=== PATIENT | male | born 1955 | race Caucasian/White ===

== ENCOUNTER → 2017-01-17 | Outpatient (CLI) | payer BC ==
[2017-01-17 07:11] LABS: Basophils # (A) 0.1 k/uL (0-0.2); Basophils % (A) 1 %; CH 30.4; CHCM 34.6; Eosinophils # (A) 0.3 k/uL (0-0.7); Eosinophils % (A) 6 %; HCT 45.9 % (39.0-53.0); HDW 2.79; HGB 15.8 gm/dL (13.0-17.5); Luc # (Auto) 0.11; Luc % (Auto) 2; Lymphocytes # (A) 0.7 k/uL (1.0-4.8); Lymphocytes % (A) 12 %; MCH 30.4 pg (25.0-35.0); MCHC 34.5 g/dL (31.0-37.0); MCV 88.2 fL (80.0-100.0); Mean Platelet Volume 7.2; Monocytes # (A) 0.4 k/uL (0-1.0); Monocytes % (A) 8 %; Neutrophils # (A) 4.1 k/uL (1.3-7.7); Neutrophils % (A) 72 %; RDW 14.7 % (11.5-15.5); WBC 5.6 k/uL (3.8-10.6); WBC (Perox) 5.77
[2017-01-17 08:04] LABS: ALT 55 U/L (21-72); AST 29 U/L (17-59); Alkaline Phosphatase 59 U/L (38-126); Anion Gap 9 mmol/L; Blood Urea Nitrogen 16 mg/dL (9-20); Calcium 9.6 mg/dL (8.4-10.2); Carbon Dioxide 28 mmol/L (22-30); Chloride 106 mmol/L (98-107); Cholesterol 133 mg/dL (<200); Glucose 98 mg/dL (74-99); HDL Cholesterol 25 mg/dL (40-60); Non-African American GFR(MDRD) >60 (>60 ml/min/1.73 sqM); Potassium 4.2 mmol/L (3.5-5.1); Sodium 143 mmol/L (137-145); Total Bilirubin 0.4 mg/dL (0.2-1.3); Total Protein 6.8 g/dL (6.3-8.2)
== END | disposition home or self-care (01) ==
LOC: LABWHC1 06:34
PROVIDERS: ATTEND Internal Medicine
DX: E78.00 Pure hypercholesterolemia, unspecified (principal); K58.9 Irritable bowel syndrome, unspecified; Z79.899 Other long term (current) drug therapy
CPT/HCPCS: 84439; 84481; 80061; 80053; 84443; 85025; 83036; 36415; G0103

== ENCOUNTER → 2018-10-22 | Outpatient (CLI) | payer BC ==
[2018-10-22 07:20] LABS: Basophils % (A) 1 %; Eosinophils # (A) 0.2 k/uL (0-0.7); Eosinophils % (A) 4 %; HCT 40.7 % (39.0-53.0); HGB 14.1 gm/dL (13.0-17.5); Lymphocytes # (A) 0.6 k/uL (1.0-4.8); Lymphocytes % (A) 13 %; MCH 29.6 pg (25.0-35.0); MCHC 34.6 g/dL (31.0-37.0); MCV 85.6 fL (80.0-100.0); Mean Platelet Volume 6.9; Monocytes # (A) 0.3 k/uL (0-1.0); Monocytes % (A) 7 %; Neutrophils # (A) 3.4 k/uL (1.3-7.7); Neutrophils % (A) 72 %; Platelet Count 148 k/uL (150-450); RBC 4.75 m/uL (4.30-5.90); RDW 13.8 % (11.5-15.5); WBC 4.7 k/uL (3.8-10.6)
[2018-10-22 13:29] LABS: African American GFR (CKD) 62.4 (60.0-200.0); Albumin 4.3 g/dL (3.80-4.90); Albumin/Globulin Ratio 1.72 (1.60-3.17); Anion Gap 8.4 mmol/L (4.00-12.00); BUN/Creat Ratio 12.14 Ratio (12.00-20.00); Carbon Dioxide 27.6 mmol/L (21.6-31.8); Globulin 2.5 g/dL (1.6-3.3); Non-African American GFR(CKD) 53.8 (60.0-200.0); Potassium 4.2 mmol/L (3.5-5.5); Total Bilirubin 0.6 mg/dL (0.2-1.2); Total Protein 6.8 g/dL (6.2-8.2)
[2018-10-22 13:39] LABS: T4, Free (Free Thyroxine) 1.3 ng/dL (0.80-1.80)
[2018-10-22 17:35] LABS: Hemoglobin A1C 4.8 % (4.0-6.0)
== END | disposition home or self-care (01) ==
LOC: LABWHC1 06:40
PROVIDERS: ATTEND Internal Medicine
DX: E78.00 Pure hypercholesterolemia, unspecified (principal); K58.9 Irritable bowel syndrome, unspecified; M54.5 Low back pain; Z80.0 Family history of malignant neoplasm of digestive organs
CPT/HCPCS: 84439; 84481; 80053; 84443; 85025; 83036; 36415; G0103

== ENCOUNTER 2020-10-27 16:35 | Observation (INO) | payer BC ==
[2020-10-27 17:38] LABS: Basophils % (A) 0 %; Eosinophils # (A) 0.1 k/uL (0-0.7); Eosinophils % (A) 1 %; HCT 44.3 % (39.0-53.0); HGB 15.8 gm/dL (13.0-17.5); Lymphocytes # (A) 0.7 k/uL (1.0-4.8); Lymphocytes % (A) 7 %; MCH 32.3 pg (25.0-35.0); MCHC 35.7 g/dL (31.0-37.0); MCV 90.5 fL (80.0-100.0); Monocytes # (A) 0.3 k/uL (0-1.0); Monocytes % (A) 3 %; Neutrophils # (A) 8.7 k/uL (1.3-7.7); Neutrophils % (A) 87 %; Platelet Count 239 k/uL (150-450); RBC 4.89 m/uL (4.30-5.90); RDW 13.3 % (11.5-15.5)
[2020-10-27 17:52] LABS: ALT 28 U/L (4-49); AST 25 U/L (17-59); African American GFR (CKD) >90 (>60 ml/min/1.73 sqM); Albumin 3.9 g/dL (3.5-5.0); Alkaline Phosphatase 82 U/L (38-126); Anion Gap 10 mmol/L; Blood Urea Nitrogen 12 mg/dL (9-20); Calcium 9.6 mg/dL (8.4-10.2); Carbon Dioxide 23 mmol/L (22-30); Chloride 103 mmol/L (98-107); Glucose 114 mg/dL (74-99); Non-African American GFR(CKD) >90 (>60 ml/min/1.73 sqM); Potassium 3.9 mmol/L (3.5-5.1); Sodium 136 mmol/L (137-145); Total Bilirubin 0.4 mg/dL (0.2-1.3); Total Protein 6.7 g/dL (6.3-8.2)
[2020-10-27] MEDS ORDERED: AMPICILLIN-SULBACTAM 3 GM in SODIUM CHLORIDE 0.9% 100 ML IVPB STA (18:22)
[2020-10-27] MEDS ORDERED: VANCOMYCIN IV PER PHARMACY 1 EACH MISC MISCELLANE PRN (18:23)
[2020-10-27] MEDS ORDERED: NALOXONE 0.4 MG/ML 1 ML VIAL IV PRN (18:29)
--- NOTE | 2020-10-27 18:29 | ED ---
General Adult HPI - General Chief complaint: Skin/Abscess/Foreign Body Stated complaint: back abscess Time Seen by Provider: 10/27/20 16:49 Source: patient Mode of arrival: ambulatory Limitations: no limitations - History of Present Illness Initial comments: 65-year-old male who presents to the emergency department from Dr. Ro office. Dr. whalen he does call and reports that the patient will be coming in for a large abscess on his back. Patient reports that the abscess has been present for some time however has been increasing in size rapidly over the past week. He did see Dr. whalen yesterday and his abscess was incised and drained. He was placed on Keflex. He states he has taken 3 doses of the antibiotic. He presented again today for reevaluation and dr whalen was concerned about the size of the abscess. The incised it again today. States he is currently waiting for culture results. He was concerned that due to the spreading cellulitis that the patient required IV antibiotics. Patient denies any history of MRSA and has had multiple other areas of infection body but states he has not been on any antibiotics recently. Denies history of drug use. No contacts with similar symptoms. No fevers or chills. Denies nausea or vomiting. No other alleviating, precipitating or modifying factors - Related Data Previous Rx's Medication Instructions Recorded HYDROcodone/APAP 5-325MG [[place] 1 tab PO Q6HR PRN #15 tab 02/03/16 5-325] Cephalexin [Keflex] 500 mg PO QID 10 Days #40 cap 10/31/20 Ciprofloxacin HCl [Cipro] 500 mg PO BID 10 Days #20 tab 10/31/20 Allergies Allergy/AdvReac Type Severity Reaction Status Date / Time shellfish derived [Shellfish] Allergy Swelling Verified 10/27/20 18:34 Review of Systems ROS Statement: Those systems with pertinent positive or pertinent negative responses have been documented in the HPI. ROS Other: All systems not noted in ROS Statement are negative. Past Medical History Past Medical History: No Reported History Additional Past Medical History / Comment(s): seasonal allergies History of Any Multi-Drug Resistant Organisms: None Reported Past Surgical History: No Surgical Hx Reported Past Psychological History: No Psychological Hx Reported Smoking Status: Never smoker Past Alcohol Use History: None Reported Past Drug Use History: None Reported General Exam Limitations: no limitations Respiratory exam: Present: normal lung sounds bilaterally. Absent: respiratory distress, wheezes, rales, rhonchi, stridor Cardiovascular Exam: Present: regular rate, normal rhythm, normal heart sounds. Absent: systolic murmur, diastolic murmur, rubs, gallop, clicks GI/Abdominal exam: Present: soft, normal bowel sounds. Absent: distended, tenderness, guarding, rebound, rigid Skin exam: Present: other (abscess left back measuring 8 x 6 cm. 4 cm ring of surrounding redness and swelling consistent with cellulitis. No active drainage at this time. ) Course Vital Signs 10/27/20 10/27/20 16:44 20:00 Temperature 98.3 F 97.7 F Pulse Rate 80 Pulse Rate [ 67 Pulse Oximetery ] Respiratory 18 20 Rate Blood Pressure 129/84 Blood Pressure 138/75 [Left Arm] O2 Sat by Pulse 97 97 Oximetry Medical Decision Making - Medical Decision Making Upon arrival patient was placed into room 27. IV is established laboratory studies were conducted. I did review the patient's culture results which show mssa. Due to the large size of the abscess I did give the patient a dose of Unasyn and Vanco. Recommended admission with surgical consult for Dr. Phillips. Called and spoke with Dr. gasca who agreed to admit the patient. He was taken to the floor in stable condition - Lab Data Result diagrams: 10/27/20 17:24 10/30/20 05:46 Lab Results 10/27/20 10/27/20 10/27/20 Range/Units 17:24 17:24 17:24 WBC 10.0 (3.8-10.6) k/uL RBC 4.89 (4.30-5.90) m/uL Hgb 15.8 (13.0-17.5) gm/dL Hct 44.3 (39.0-53.0) % MCV 90.5 (80.0-100.0) fL MCH 32.3 (25.0-35.0) pg MCHC 35.7 (31.0-37.0) g/dL RDW 13.3 (11.5-15.5) % Plt Count 239 (150-450) k/uL MPV 7.0 Neutrophils % 87 % Lymphocytes % 7 % Monocytes % 3 % Eosinophils % 1 % Basophils % 0 % Neutrophils # 8.7 H (1.3-7.7) k/uL Lymphocytes # 0.7 L (1.0-4.8) k/uL Monocytes # 0.3 (0-1.0) k/uL Eosinophils # 0.1 (0-0.7) k/uL Basophils # 0.0 (0-0.2) k/uL Sodium 136 L (137-145) mmol/L Potassium 3.9 (3.5-5.1) mmol/L Chloride 103 (98-107) mmol/L Carbon Dioxide 23 (22-30) mmol/L Anion Gap 10 mmol/L BUN 12 (9-20) mg/dL Creatinine 0.73 (0.66-1.25) mg/dL Est GFR (CKD-EPI)AfAm >90 (>60 ml/min/1.73 sqM) Est GFR (CKD-EPI)NonAf >90 (>60 ml/min/1.73 sqM) Glucose 114 H (74-99) mg/dL Plasma Lactic Acid Michael 0.7 (0.7-2.0) mmol/L Calcium 9.6 (8.4-10.2) mg/dL Total Bilirubin 0.4 (0.2-1.3) mg/dL AST 25 (17-59) U/L ALT 28 (4-49) U/L Alkaline Phosphatase 82 (38-126) U/L Total Protein 6.7 (6.3-8.2) g/dL Albumin 3.9 (3.5-5.0) g/dL Disposition Clinical Impression: Abscess, Cellulitis Disposition: ADMITTED IP TO THIS [facility] Condition: Stable Is patient prescribed a controlled substance at d/c from ED?: No Decision to Admit Reason: Admit from EC Decision Date: 10/27/20 Decision Time: 18:28
[2020-10-27] MEDS ORDERED: VANCOMYCIN 1,500 MG in SODIUM CHLORIDE 0.9% 250 ML IVPB ONE (18:30)
[2020-10-28] MEDS: VANCOMYCIN 1,500 MG in SODIUM CHLORIDE 0.9% 250 ML IVPB SCH ×3 (06:05→19:53)
[2020-10-28 06:48] LABS: African American GFR (CKD) >90 (>60 ml/min/1.73 sqM); Anion Gap 9 mmol/L; Blood Urea Nitrogen 12 mg/dL (9-20); Calcium 9.5 mg/dL (8.4-10.2); Carbon Dioxide 25 mmol/L (22-30); Chloride 104 mmol/L (98-107); Glucose 118 mg/dL (74-99); Non-African American GFR(CKD) >90 (>60 ml/min/1.73 sqM); Sodium 138 mmol/L (137-145)
[2020-10-28] MEDS ORDERED: ONDANSETRON 4 MG/2 ML VIAL IVP PRN (08:32)
[2020-10-28] MEDS: HEPARIN SODIUM,PORCINE/PF 5,000 UNIT/0.5 ML SYRINGE SQ SCH ×2 (08:41→19:53)
[2020-10-28] MEDS: SODIUM CHLORIDE 0.9% 1,000 ML IV SCH ×2 (08:41→19:54)
[2020-10-28] MEDS: FAMOTIDINE 20 MG/2 ML VIAL IV SCH ×2 (08:46→19:54)
--- NOTE | 2020-10-28 10:32 | P.HPIM ---
History of Present Illness This is a pleasant 65 years old male with no significant past medical history. Presents because of back abscess Patient follows up with his clay roaster Dr. Tsai for his laparoscopic cholecystectomy rash, he has few papules in his lower extremities, however he started developing back abscess and for the last 10 days was getting bigger is status post I&D 3 times by his clay roaster and eventually he asked him to come to emergency room Patient is afebrile and vitals are stable. Labs reviewed showed an unremarkable CBC, BMP and liver enzymes except for mildly low sodium at 136, and mildly elevated glucose at 214 The emergency room patient was started on vancomycin and got 1 dose of Unasyn Surgery team were consulted for abscess evaluation Review of Systems CONSTITUTIONAL: No fever, no malaise, no fatigue. HEENT: No recent visual problems or hearing problems. Denied any sore throat. CARDIOVASCULAR: No orthopnea, PND, no palpitations, no syncope. PULMONARY: No shortness of breath, no cough, no hemoptysis. GASTROINTESTINAL: No diarrhea, no nausea, no vomiting, no abdominal pain. Normoactive bowel sounds. NEUROLOGICAL: No headaches, no weakness, no numbness. HEMATOLOGICAL: Denies any bleeding or petechiae. GENITOURINARY: Denies any burning micturition, frequency, or urgency. MUSCULOSKELETAL/RHEUMATOLOGICAL: Denies any joint pain, swelling, or any muscle pain. ENDOCRINE: Denies any polyuria or polydipsia. Past Medical History Past Medical History: No Reported History Additional Past Medical History / Comment(s): seasonal allergies History of Any Multi-Drug Resistant Organisms: None Reported Past Surgical History: No Surgical Hx Reported Past Anesthesia/Blood Transfusion Reactions: No Reported Reaction Past Psychological History: No Psychological Hx Reported Smoking Status: Never smoker Past Alcohol Use History: None Reported Past Drug Use History: None Reported Medications and Allergies Home Medications Medication Instructions Recorded Confirmed Type HYDROcodone/APAP 5-325MG [[place] 1 tab PO Q6HR PRN #15 tab 02/03/16 10/27/20 Rx 5-325] Cephalexin [Keflex] 500 mg PO TID 10/27/20 10/27/20 History Allergies Allergy/AdvReac Type Severity Reaction Status Date / Time shellfish derived [Shellfish] Allergy Swelling Verified 10/27/20 18:34 Physical Exam Vitals: Vital Signs Temp Pulse Pulse Resp BP BP Pulse Ox 10/28/20 02:53 71 18 10/28/20 02:00 98.3 F 71 18 102/63 93 L 10/27/20 21:00 71 18 10/27/20 20:00 97.7 F 67 20 138/75 97 10/27/20 16:44 98.3 F 80 18 129/84 97 Intake and Output 10/27/20 10/27/20 10/28/20 14:59 22:59 06:59 Other: Voiding Method Toilet Toilet # Voids 1 3 Weight 97.522 kg GENERAL: The patient is alert and oriented x3, not in any acute distress. Well developed, well nourished. HEENT: Pupils are round and equally reacting to light. EOMI. No scleral icterus. No conjunctival pallor. Normocephalic, atraumatic. No pharyngeal erythema. No thyromegaly. CARDIOVASCULAR: S1 and S2 present. No murmurs, rubs, or gallops. PULMONARY: Chest is clear to auscultation, no wheezing or crackles. ABDOMEN: Soft, nontender, nondistended, normoactive bowel sounds. No palpable organomegaly. -MUSCULOSKELETAL: No joint swelling or deformity. Back abscess with surrounding cellulitis, 4-5 inches in diameter with some purulent discharge in the upper part EXTREMITIES: No cyanosis, clubbing, or pedal edema. NEUROLOGICAL: Gross neurological examination did not reveal any focal deficits. SKIN: No rashes. No petechiae Results CBC & Chem 7: 10/27/20 17:24 10/28/20 06:25 Labs: Abnormal Lab Results - Last 24 Hours (Table) 10/27/20 10/27/20 Range/Units 17:24 17:24 Neutrophils # 8.7 H (1.3-7.7) k/uL Lymphocytes # 0.7 L (1.0-4.8) k/uL Sodium 136 L (137-145) mmol/L Glucose 114 H (74-99) mg/dL Thrombosis Risk Factor Assmnt - Choose All That Apply Each Factor Represents 1 point: Obesity (BMI >25) Each Risk Factor Represents 2 Points: Age 61-74 years Other congenital or acquired thrombophilia - If yes, enter type in comment: No Thrombosis Risk Factor Assessment Total Risk Factor Score: 3 Thrombosis Risk Factor Assessment Level: Moderate Risk Assessment and Plan Assessment: Back abscess with Surrounding cellulitis Recent COVID-19 19 infection Plan: This is a pleasant 65 years old male who presents with a back abscess, he was started on vancomycin We'll consult infectious disease for further evaluation and antibiotic management Surgery consult for possible I and D Start IV hydration Labs and medication were reviewed.. Continue same treatment. Continue with symptomatic treatment. Resume home medication. Monitor lytes and vitals. DVT and GI prophylaxis. Further recommendations depends on the clinical course of the patient DVT prophylaxis: Subcutaneous heparin GI Prophylaxis: Pepcid PT/OT: Pending Prognosis is guarded
--- NOTE | 2020-10-28 12:54 | P.GSCN ---
History of Present Illness Consult date: 10/28/20 History of present illness: CHIEF COMPLAINT: Back abscess HISTORY OF PRESENT ILLNESS: This is a 65-year-old male with no significant past medical history. Patient presents to emergency room with complaints of upper back abscess. Patient reports that it started out as a pimple and he had picked at it and it continued to increase in size. He is required to [address] I[address] Maria's office. The last one was on . He also had been taking Keflex and received 3 doses. Unfortunately the abscess continued to worsen and he was told to come to the hospital for IV antibiotics. Surgical consult was placed for further evaluation of the back abscess. He denies any fevers but he has been having some nausea and vomiting. PAST MEDICAL HISTORY: See list. PAST SURGICAL HISTORY: See list. MEDICATIONS: See list. ALLERGIES: See list. SOCIAL HISTORY: No illicit drug use. REVIEW OF SYSTEMS: CONSTITUTIONAL: Denies fever or chills. HEENT: Denies blurred vision, vision changes, or eye pain. Denies hemoptysis CARDIOVASCULAR: Denies chest pain or pressure. RESPIRATORY: No shortness of breath. GASTROINTESTINAL: See HPI for pertinent findings HEMATOLOGIC: Denies bleeding disorders. GENITOURINARY: Denies any blood in urine or increased urinary frequency. SKIN: Denies pruitis. Denies rash. PHYSICAL EXAM: VITAL SIGNS: Reviewed GENERAL: Well-developed in no acute distress. HEENT: No sclera icterus. Extraocular movements grossly intact. Moist buccal mucosa. Head is atraumatic, normocephalic. No nasal drainage. ABDOMEN: Soft. Nondistended. Nontender. NEUROLOGIC: Alert and oriented. Cranial nerves II through XII grossly intact. Skin: 5 cm circular abscess with sloughing of skin. Mild erythema on the edges. Area of induration around the edges of the abscess. Below that is about a 2 cm abscess that has not drained. Erythema induration noted and mild fluctuance. LABORATORY DATA: WBC 10 hemoglobin 15.8 platelets 239 sodium 138 potassium 4.0 creatinine 0.76 LFTs normal Culture results on October 24 had grown MSSA IMAGING: ASSESSMENT: 1. Back abscesses status post 3 I&D's outpatient by mushroom press operator PLAN: -No surgical intervention planned -Continue local wound care -Continue antibiotics per ID -Agree with ID consult -Apply warm compress to the smaller abscess has not started to drain yet Thank you for this consultation Physician Beam Racker note has been reviewed by physician. Signing provider agrees with the documented findings, assessment, and plan of care. Past Medical History Past Medical History: No Reported History Additional Past Medical History / Comment(s): seasonal allergies History of Any Multi-Drug Resistant Organisms: None Reported Past Surgical History: No Surgical Hx Reported Past Anesthesia/Blood Transfusion Reactions: No Reported Reaction Past Psychological History: No Psychological Hx Reported Smoking Status: Never smoker Past Alcohol Use History: None Reported Past Drug Use History: None Reported Medications and Allergies Home Medications Medication Instructions Recorded Confirmed Type HYDROcodone/APAP 5-325MG [[place] 1 tab PO Q6HR PRN #15 tab 02/03/16 10/27/20 Rx 5-325] Cephalexin [Keflex] 500 mg PO TID 10/27/20 10/27/20 History Allergies Allergy/AdvReac Type Severity Reaction Status Date / Time shellfish derived [Shellfish] Allergy Swelling Verified 10/27/20 18:34 Surgical - Exam Vital Signs Temp Pulse Resp BP Pulse Ox 98.3 F 80 18 129/84 97 10/27/20 16:44 10/27/20 16:44 10/27/20 16:44 10/27/20 16:44 10/27/20 16:44 Results - Labs 10/27/20 17:24 10/28/20 06:25 Abnormal Lab Results - Last 24 Hours (Table) 10/27/20 10/27/20 10/28/20 Range/Units 17:24 17:24 06:25 Neutrophils # 8.7 H (1.3-7.7) k/uL Lymphocytes # 0.7 L (1.0-4.8) k/uL Sodium 136 L (137-145) mmol/L Glucose 114 H 118 H (74-99) mg/dL Diabetes panel 10/27/20 10/28/20 Range/Units 17:24 06:25 Sodium 136 L 138 (137-145) mmol/L Potassium 3.9 4.0 (3.5-5.1) mmol/L Chloride 103 104 (98-107) mmol/L Carbon Dioxide 23 25 (22-30) mmol/L BUN 12 12 (9-20) mg/dL Creatinine 0.73 0.76 (0.66-1.25) mg/dL Glucose 114 H 118 H (74-99) mg/dL Calcium 9.6 9.5 (8.4-10.2) mg/dL AST 25 (17-59) U/L ALT 28 (4-49) U/L Alkaline Phosphatase 82 (38-126) U/L Total Protein 6.7 (6.3-8.2) g/dL Albumin 3.9 (3.5-5.0) g/dL Calcium panel 10/27/20 10/28/20 Range/Units 17:24 06:25 Calcium 9.6 9.5 (8.4-10.2) mg/dL Albumin 3.9 (3.5-5.0) g/dL Pituitary panel 10/27/20 10/28/20 Range/Units 17:24 06:25 Sodium 136 L 138 (137-145) mmol/L Potassium 3.9 4.0 (3.5-5.1) mmol/L Chloride 103 104 (98-107) mmol/L Carbon Dioxide 23 25 (22-30) mmol/L BUN 12 12 (9-20) mg/dL Creatinine 0.73 0.76 (0.66-1.25) mg/dL Glucose 114 H 118 H (74-99) mg/dL Calcium 9.6 9.5 (8.4-10.2) mg/dL Adrenal panel 10/27/20 10/28/20 Range/Units 17:24 06:25 Sodium 136 L 138 (137-145) mmol/L Potassium 3.9 4.0 (3.5-5.1) mmol/L Chloride 103 104 (98-107) mmol/L Carbon Dioxide 23 25 (22-30) mmol/L BUN 12 12 (9-20) mg/dL Creatinine 0.73 0.76 (0.66-1.25) mg/dL Glucose 114 H 118 H (74-99) mg/dL Calcium 9.6 9.5 (8.4-10.2) mg/dL Total Bilirubin 0.4 (0.2-1.3) mg/dL AST 25 (17-59) U/L ALT 28 (4-49) U/L Alkaline Phosphatase 82 (38-126) U/L Total Protein 6.7 (6.3-8.2) g/dL Albumin 3.9 (3.5-5.0) g/dL
--- NOTE | 2020-10-28 23:50 | P.CONS ---
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 for evaluation of large abscess on his back patient symptom he is having problem with a cyst through the mid back area for couple of weeks with the patient has been evaluated in the outpatient setting by his national park tour guide patient did have a drainage of this abscess on Saturday with a repeat drainage the day before presentation to the hospital and the patient will be treated with oral Keflex however the patient did have worsening of the swelling redness and drainage for the patient was sent to the ER for admission and IV antibiotic therapy, the patient denies having any fever or any chills and the patient did not have any fever on presentation to the hospital did have a normal white count but a left shift patient was complaining of pain to the mid back area more of a dull aching with intensity about 4-5 over 10 had no radiation he did have minimal drainage patient has been started on vancomycin general surgery has seen the patient with possible debridement in the morning infectious disease was consulted for further management of antibiotic therapy Review of Systems CONSTITUTIONAL: Positive for weakness. Fever EYES: No complaint. ENT:No complaint. RESPIRATORY: No complaint. CARDIOVASCULAR: No complaint. GENITOURINARY: No complaint. GASTROINTESTINAL: No complaint. MUSCULOSKELETAL: No complaint. INTEGUMENTARY: As per history of present illness. PSYCHOLOGICAL: No complaint. ENDOCRINE: No complaint. NEUROLOGIC: No complaint. Past Medical History Past Medical History: No Reported History Additional Past Medical History / Comment(s): seasonal allergies History of Any Multi-Drug Resistant Organisms: None Reported Past Surgical History: No Surgical Hx Reported Past Anesthesia/Blood Transfusion Reactions: No Reported Reaction Past Psychological History: No Psychological Hx Reported Smoking Status: Never smoker Past Alcohol Use History: None Reported Past Drug Use History: None Reported Medications and Allergies Home Medications Medication Instructions Recorded Confirmed Type HYDROcodone/APAP 5-325MG [[place] 1 tab PO Q6HR PRN #15 tab 02/03/16 10/27/20 Rx 5-325] Cephalexin [Keflex] 500 mg PO TID 10/27/20 10/27/20 History Allergies Allergy/AdvReac Type Severity Reaction Status Date / Time shellfish derived [Shellfish] Allergy Swelling Verified 10/27/20 18:34 Physical Exam Vitals: Vital Signs Temp Pulse Pulse Resp BP BP Pulse Ox 10/28/20 15:00 98.1 F 77 17 140/71 96 10/28/20 07:00 97.2 F L 60 18 113/67 94 L 10/28/20 02:53 71 18 10/28/20 02:00 98.3 F 71 18 102/63 93 L 10/27/20 21:00 71 18 10/27/20 20:00 97.7 F 67 20 138/75 97 10/27/20 16:44 98.3 F 80 18 129/84 97 Intake and Output 10/28/20 10/28/20 10/28/20 06:59 14:59 22:59 Intake Total 477 Balance 477 Intake: Oral 477 Other: Voiding Method Toilet # Voids 3 3 GENERAL DESCRIPTION: Middle-aged male lying in bed, no distress. No tachypnea or accessory muscle of respiration use. HEENT: Shows Pallor , no scleral icterus. Oral mucous membrane is dry. No pharyngeal erythema or thrush NECK: Trachea central, no thyromegaly. LUNGS: Unlabored breathing. Clear to auscultation anteriorly. No wheeze or crackle. HEART: S1, S2, regular rate and rhythm. No loud murmur ABDOMEN: Soft, no tenderness , guarding or rigidity, no organomegaly EXTREMITIES: No edema of feet. SKIN: No rash, no masses palpable. Mid back and did have an area ulceration or any redness he will drainage NEUROLOGICAL: The patient is awake, alert, oriented x3, mood and affect normal. Results CBC & Chem 7: 10/27/20 17:24 10/28/20 06:25 Labs: Abnormal Lab Results - Last 24 Hours (Table) 10/27/20 10/27/20 10/28/20 Range/Units 17:24 17:24 06:25 Neutrophils # 8.7 H (1.3-7.7) k/uL Lymphocytes # 0.7 L (1.0-4.8) k/uL Sodium 136 L (137-145) mmol/L Glucose 114 H 118 H (74-99) mg/dL Assessment and Plan Assessment: 1-patient presented to hospital with mid back abscess that has been going on for few weeks now started with a cyst that has been drained in the outpatient setting and has been treated with the oral antibiotic without resolution likely representing failure of the oral antibiotics and will be deferred for the gram- positive skin jennifer to be the likely pathogen especially community associated MRSA (1) Abscess Current Visit: Yes Status: Acute Code(s): L02.91 - CUTANEOUS ABSCESS, UNSPECIFIED SNOMED Code(s): 163984475 Plan: 1-Marked the area of induration/redness 2-await surgical drainage and deep cultures 3-vancomycin pharmacy to dose her with a target trough of 15 while watching her kidney function and Vanco trough closely. We will follow on clinical condition and cultures to further adjust medication if needed Thank you for this consultation we will follow the patient along with you Time with Patient: Greater than 30
[2020-10-29] MEDS: VANCOMYCIN 1,500 MG in SODIUM CHLORIDE 0.9% 250 ML IVPB SCH ×3 (05:41→23:23)
[2020-10-29] MEDS: FAMOTIDINE 20 MG/2 ML VIAL IV SCH ×2 (07:28→19:19)
[2020-10-29] MEDS: HEPARIN SODIUM,PORCINE/PF 5,000 UNIT/0.5 ML SYRINGE SQ SCH ×2 (07:28→19:19)
--- NOTE | 2020-10-29 11:28 | P.PN ---
Progress Note - Text Progress Note Date: 10/29/20 Patient feels well. His back skin lesion has improved cellulitis. The area of dermal necrosis is stable. The patient will will was likely be discharged home today. He'll follow-up the office 1 week.
[2020-10-29] MEDS ORDERED: VANCOMYCIN TROUGH DUE 1 EACH MISC MISCELLANE ONE (13:00)
[2020-10-29] MEDS: SODIUM CHLORIDE 0.9% 1,000 ML IV SCH ×2 (13:21→22:26)
--- NOTE | 2020-10-29 16:43 | PN ---
PROGRESS NOTE DATE OF SERVICE: 10/29/2020 REASON FOR FOLLOWUP: Mid back abscess. INTERVAL HISTORY: The patient is currently afebrile. The patient's mid back pain and discomfort have decreased. The patient denies having any chest pain or shortness of breath or cough. No abdominal pain or diarrhea. PHYSICAL EXAMINATION: Blood pressure 124/78 with a pulse of 77, temperature 98. He is 97% on room air. GENERAL DESCRIPTION: General description is a middle-aged male lying in bed in no distress. RESPIRATORY SYSTEM: Unlabored breathing. Clear to auscultation anteriorly. HEART: S1, S2. Regular rate and rhythm. ABDOMEN: Soft. No tenderness. Mid back area did have some slough tissue. Surrounding swelling and redness have slightly decreased. LABS: Vancomycin trough is slightly elevated at 20.5. Cultures are currently pending. DIAGNOSTIC IMPRESSION AND PLAN: Patient with a mid back abscess with spontaneous drainage. Cultures are currently pending. Will wait for the culture to finalize to determine his discharge antibiotics. Continue the vancomycin. Dose needs to be cut back to keep the trough around 15. Local wound care with Joshua. MMODL / IJN: [id number] /
--- NOTE | 2020-10-29 20:43 | P.PN ---
Subjective This is a pleasant 65 years old male with no significant past medical history. 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 Tsai for his laparoscopic cholecystectomy rash, he has few papules in his lower extremities, however he started developing back abscess and for the last 10 days was getting bigger is status post I&D 3 times by his market development manager and eventually he asked him to come to emergency room Patient is afebrile and vitals are stable. Labs reviewed showed an unremarkable CBC, BMP and liver enzymes except for mildly low sodium at 136, and mildly elevated glucose at 214 The emergency room patient was started on vancomycin and got 1 dose of Unasyn Surgery team were consulted for abscess evaluation 10/29/2020 Patient is awake and alert, he is looked clinically stable upon bed however his upper back abscess is improving, again found the patient no need for any surgical intervention and they want to see him in the office after 1 week, wanted to leave today evening signing AMA however I explained for the patient the risk of leaving without getting the final results of the culture including risk of further infection, sepsis or organ damage and/or he verbalized understanding and acceptance and wanted to stay in the hospital for now Patient remains on vancomycin. Wound culture still pending Objective - Vital Signs Vital signs: Vital Signs Temp 98.0 F 10/29/20 15:00 Pulse 77 10/29/20 15:00 Resp 16 10/29/20 15:00 BP 124/78 10/29/20 15:00 Pulse Ox 97 10/29/20 15:00 Intake & Output 10/29/20 10/29/20 10/30/20 06:59 18:59 06:59 Other: Voiding Method Toilet # Voids 1 3 - Exam GENERAL: The patient is alert and oriented x3, not in any acute distress. Well developed, well nourished. HEENT: Pupils are round and equally reacting to light. EOMI. No scleral icterus. No conjunctival pallor. Normocephalic, atraumatic. No pharyngeal erythema. No thyromegaly. CARDIOVASCULAR: S1 and S2 present. No murmurs, rubs, or gallops. PULMONARY: Chest is clear to auscultation, no wheezing or crackles. ABDOMEN: Soft, nontender, nondistended, normoactive bowel sounds. No palpable organomegaly. -MUSCULOSKELETAL: No joint swelling or deformity. Back abscess with surrounding cellulitis, 4-5 inches in diameter with some purulent discharge in the upper part EXTREMITIES: No cyanosis, clubbing, or pedal edema. NEUROLOGICAL: Gross neurological examination did not reveal any focal deficits. SKIN: No rashes. No petechiae - Labs CBC & Chem 7: 10/27/20 17:24 10/28/20 06:25 Labs: Microbiology - Last 24 Hours (Table) 10/29/20 01:50 Wound Culture - Preliminary Back 10/29/20 01:50 Anaerobic Culture - Preliminary Back Assessment and Plan Assessment: Back abscess with Surrounding cellulitis Recent COVID-19 19 infection Plan: This is a pleasant 65 years old male who presents with a back abscess, he was started on vancomycin We'll consult infectious disease for further evaluation and antibiotic management Surgery consult for possible I and D Start IV hydration Labs and medication were reviewed.. Continue same treatment. Continue with symptomatic treatment. Resume home medication. Monitor lytes and vitals. DVT and GI prophylaxis. Further recommendations depends on the clinical course of the patient DVT prophylaxis: Subcutaneous heparin GI Prophylaxis: Pepcid PT/OT: Pending Prognosis is guarded
[2020-10-30] MEDS: VANCOMYCIN 1,500 MG in SODIUM CHLORIDE 0.9% 250 ML IVPB SCH (05:38)
[2020-10-30 06:27] LABS: African American GFR (CKD) >90 (>60 ml/min/1.73 sqM); Anion Gap 7 mmol/L; Blood Urea Nitrogen 15 mg/dL (9-20); Calcium 9.4 mg/dL (8.4-10.2); Carbon Dioxide 26 mmol/L (22-30); Chloride 105 mmol/L (98-107); Glucose 95 mg/dL (74-99); Non-African American GFR(CKD) >90 (>60 ml/min/1.73 sqM); Potassium 4.1 mmol/L (3.5-5.1); Sodium 138 mmol/L (137-145)
[2020-10-30] MEDS: FAMOTIDINE 20 MG/2 ML VIAL IV SCH ×2 (07:38→19:53)
[2020-10-30] MEDS: HEPARIN SODIUM,PORCINE/PF 5,000 UNIT/0.5 ML SYRINGE SQ SCH ×2 (07:38→19:53)
--- NOTE | 2020-10-30 12:37 | P.PN ---
Progress Note - Text Progress Note Date: 10/30/20 Patient remains clinically unchanged. His sinusitis back is improved. On exam vitals are stable. Abdomen soft. So is some back is improving. There is less drainage. Her patiently discharged home per the medical service. He'll follow myself in one week.
[2020-10-30] MEDS: VANCOMYCIN 1,250 MG in SODIUM CHLORIDE 0.9% 250 ML IVPB SCH ×2 (14:15→22:13)
[2020-10-30] MEDS: SODIUM CHLORIDE 0.9% 1,000 ML IV SCH (14:20)
[2020-10-30] MEDS: CEFEPIME 2 GM in SODIUM CHLORIDE 0.9% 100 ML IVPB SCH (18:17)
--- NOTE | 2020-10-30 19:31 | PN ---
PROGRESS NOTE DATE OF SERVICE: 10/30/2020 REASON FOR FOLLOWUP: Mid back abscess. INTERVAL HISTORY: The patient is currently afebrile. The patient is feeling better, breathing comfortably. Overall pain and discomfort to the back area have slightly decreased. No chest pain, shortness of breath or cough. No abdominal pain or diarrhea. PHYSICAL EXAMINATION: Blood pressure 120/69 with a pulse of 56, temperature 97.8. He is 95% on room air. GENERAL DESCRIPTION: General description is a middle-aged male up in the bed in no distress. RESPIRATORY SYSTEM: Unlabored breathing. Clear to auscultation anteriorly. HEART: S1, S2. Regular rate and rhythm. ABDOMEN: Soft. No tenderness. Mid back wound with slough tissue. Lower area still have some purulent drainage. LABS: Culture showing Staph aureus and Gram-negative bacilli. DIAGNOSTIC IMPRESSION AND PLAN: Patient with a mid back abscess with spontaneous drainage. Culture now showing Gram- negative. Will add cefepime. Will wait for the culture to finalize to determine discharge antibiotics. Local care to continue with [facility] and close outpatient followup. MMODL / IJN: [id number] /
[2020-10-30] MEDS ORDERED: VANCOMYCIN TROUGH DUE 1 EACH MISC MISCELLANE ONE (21:00)
[2020-10-31] MEDS: SODIUM CHLORIDE 0.9% 1,000 ML IV SCH (00:39)
[2020-10-31] MEDS: CEFEPIME 2 GM in SODIUM CHLORIDE 0.9% 100 ML IVPB SCH ×2 (01:05→11:10)
[2020-10-31 01:34] VITALS: RESP 18
[2020-10-31] MEDS: VANCOMYCIN 1,250 MG in SODIUM CHLORIDE 0.9% 250 ML IVPB SCH (05:40)
[2020-10-31 07:19] VITALS: BP 120/78; PULSE 66; TEMP 98.4
[2020-10-31] MEDS: FAMOTIDINE 20 MG/2 ML VIAL IV SCH (07:21)
[2020-10-31] MEDS: HEPARIN SODIUM,PORCINE/PF 5,000 UNIT/0.5 ML SYRINGE SQ SCH (07:21)
--- NOTE | 2020-10-31 09:42 | P.PN ---
Subjective This is a pleasant 65 years old male with no significant past medical history. 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 Tsai for his laparoscopic cholecystectomy rash, he has few papules in his lower extremities, however he started developing back abscess and for the last 10 days was getting bigger is status post I&D 3 times by his polytechnic registrar and eventually he asked him to come to emergency room Patient is afebrile and vitals are stable. Labs reviewed showed an unremarkable CBC, BMP and liver enzymes except for mildly low sodium at 136, and mildly elevated glucose at 214 The emergency room patient was started on vancomycin and got 1 dose of Unasyn Surgery team were consulted for abscess evaluation 10/29/2020 Patient is awake and alert, he is looked clinically stable upon bed however his upper back abscess is improving, again found the patient no need for any surgical intervention and they want to see him in the office after 1 week, wanted to leave today evening signing AMA however I explained for the patient the risk of leaving without getting the final results of the culture including risk of further infection, sepsis or organ damage and/or he verbalized understanding and acceptance and wanted to stay in the hospital for now Patient remains on vancomycin. Wound culture still pending 10/30/2020 Patient is asymptomatic however he still have infection in his middle back with purulent discharge, improving Patient wanted to be discharged today again, I still explained to him that the culture is not finalized. And discussed for him the risks and benefits of leaving versus stenting in the hospital waiting for the culture. Continue with antibiotics per ID team, currently is covered with vancomycin. Cefepime is admitted today as want is growing possible MRSA and gram-negative bacilli Objective - Vital Signs Vital signs: Vital Signs Temp 98.5 F 10/30/20 07:35 Pulse 76 10/30/20 07:35 Resp 18 10/30/20 07:35 BP 112/74 10/30/20 07:35 Pulse Ox 96 10/30/20 07:35 Intake & Output 10/29/20 10/30/20 10/30/20 18:59 06:59 18:59 Other: Voiding Method Toilet # Voids 3 1 - Exam GENERAL: The patient is alert and oriented x3, not in any acute distress. Well developed, well nourished. HEENT: Pupils are round and equally reacting to light. EOMI. No scleral icterus. No conjunctival pallor. Normocephalic, atraumatic. No pharyngeal erythema. No thyromegaly. CARDIOVASCULAR: S1 and S2 present. No murmurs, rubs, or gallops. PULMONARY: Chest is clear to auscultation, no wheezing or crackles. ABDOMEN: Soft, nontender, nondistended, normoactive bowel sounds. No palpable organomegaly. -MUSCULOSKELETAL: No joint swelling or deformity. Back abscess with surrounding cellulitis, 4-5 inches in diameter with some purulent discharge in the upper part EXTREMITIES: No cyanosis, clubbing, or pedal edema. NEUROLOGICAL: Gross neurological examination did not reveal any focal deficits. SKIN: No rashes. No petechiae - Labs CBC & Chem 7: 10/27/20 17:24 10/30/20 05:46 Labs: Microbiology - Last 24 Hours (Table) 10/29/20 01:50 Gram Stain - Preliminary Back Wound Culture - Preliminary 10/29/20 01:50 Anaerobic Culture - Preliminary Back Assessment and Plan Assessment: Back abscess with Surrounding cellulitis, secondary to MRSA and gram-negative bacilli Recent COVID-19 19 infection Plan: This is a pleasant 65 years old male who presents with a back abscess, he was started on vancomycin. Cefepime is added Follow-up recommendation by ID team. Follow-up final wound culture results Surgery consult . The patient for discharge Start IV hydration Labs and medication were reviewed.. Continue same treatment. Continue with symptomatic treatment. Resume home medication. Monitor lytes and vitals. DVT and GI prophylaxis. Further recommendations depends on the clinical course of the patient DVT prophylaxis: Subcutaneous heparin GI Prophylaxis: Pepcid PT/OT: Pending Prognosis is guarded
--- NOTE | 2020-10-31 14:13 | PN ---
PROGRESS NOTE DATE OF SERVICE: 10/31/2020 REASON FOR FOLLOWUP: Mid back infected sebaceous cyst. INTERVAL HISTORY: The patient is afebrile. The patient is currently feeling better, breathing comfortably. Denies having any chest pain or shortness of breath or cough. No abdominal pain or pain to the mid back area. PHYSICAL EXAMINATION: Blood pressure 120/78 with a pulse of 76, temperature 98.4. He is 95% on room air. GENERAL DESCRIPTION: General description is a middle-aged male up in the bed in no distress. RESPIRATORY SYSTEM: Unlabored breathing. Clear to auscultation anteriorly. HEART: S1, S2. Regular rate and rhythm. ABDOMEN: Soft. No tenderness. Mid back area did have an area with slough tissue. Surrounding swelling and redness have improved. No drainage. LABS: Culture positive for MSSA and Serratia marcescens. DIAGNOSTIC IMPRESSION AND PLAN: Patient with a mid back sebaceous cyst, infected. Culture with MSSA, Serratia marcescens, in this patient who failed outpatient therapy. Plan is for oral Keflex and Cipro. He is advised to follow up with me [facility] next week and close outpatient followup. MMODL / IJN: [id number] /
[2020-10-31] MEDS ORDERED: VANCOMYCIN TROUGH DUE 1 EACH MISC MISCELLANE ONE (21:00)
--- NOTE | 2020-11-01 09:12 | P.DS ---
Providers Date of admission: 10/27/20 18:29 Expected date of discharge: 10/31/20 Attending physician: Alissa Andrade Consults: 10/27/20 18:29 Consult Physician Urgent Consulting Provider: Malcom Phillips Consult Reason/Comments: back abscess Do you want consulting provider notified?: Yes 10/28/20 10:30 Consult Physician Urgent Consulting Provider: Aric Dias Consult Reason/Comments: back abscess Do you want consulting provider notified?: Yes Primary care physician: Theresa Drew Hospital Course: Final diagnosis Back abscess with surrounding cellulitis secondary to MRSA Failed outpatient treatment of back abscess Recent COVID-19 infection GI prophylaxis DVT prophylaxis Full code Discharge disposition Patient is being discharged in a stable condition with guarded prognosis to home. Patient will follow-up with Dr. Drew upon discharge. Patient also instructed to follow-up with infectious disease Dr. Dias along with surgery. Patient will continue on oral antibiotics in the form of Cipro 500 mg twice daily for the next 10 days along with Keflex 500 mg 4 times daily for the next 10 days to complete the course. Total time taken is greater than 35 minutes. Hospital course This is a 65-year-old male who was recently admitted with back abscess and was originally seen by Dr. Tsai 3 times prior to admission and instructed to come here for IV antibiotic. Patient being closely monitored and evaluated by surgery along with infectious disease. Patient showing clinical improvement and will continue on oral antibiotics in the form of Keflex 500 mg 4 times daily along with oral Cipro 500 mg twice daily for the next 10 days and close outpatient follow-up at the wound care center with Dr. Dias. Patient's wound cultures finalized showing Staphylococcus aureus and Serratia marcescens. patient is very eager to go home today. Currently no reports of chest pain, shortness of breath, or palpitations. Patient is afebrile. No reports of nause a or vomiting and patient is tolerating diet. Patient will be discharged home today. On exam vital signs are stable. Cardio S1, S2 are muffled. Respiratory shows diminished breath sounds at the bases with no wheezing or rhonchi noted. Abdomen is soft and nontender. Nervous system shows no focal deficits. Please refer to medication reconciliation sheet for a list of medications. Patient Condition at Discharge: Stable Plan - Discharge Summary Discharge Rx Participant: No New Discharge Prescriptions: New Ciprofloxacin HCl [Cipro] 500 mg PO BID 10 Days #20 tab Continue HYDROcodone/APAP 5-325MG [[place] 5-325] 1 tab PO Q6HR PRN #15 tab PRN Reason: Pain Changed Cephalexin [Keflex] 500 mg PO QID 10 Days #40 cap Discharge Medication List HYDROcodone/APAP 5-325MG [[place] 5-325] 1 tab PO Q6HR PRN #15 tab 02/03/16 [Rx] Cephalexin [Keflex] 500 mg PO QID 10 Days #40 cap 10/31/20 [Rx] Ciprofloxacin HCl [Cipro] 500 mg PO BID 10 Days #20 tab 10/31/20 [Rx] Follow up Appointment(s)/Referral(s): Theresa Drew MD [Primary Care Provider] - 1-2 days Aric Dias MD [STAFF PHYSICIAN] - 11/15/20 1:45 pm ([phone] with Dr. Dias in 7-10 days) Malcom Phillips MD [STAFF PHYSICIAN] - 11/08/20 4:00 pm Patient Instructions/Handouts: Abscess (GEN) Activity/Diet/Wound Care/Special Instructions: Activity Limited until follow-up Follow-up with surgery outpatient Follow-up with Dr. Dias infectious disease in 7-10 days [phone] to make appointment Continue with antibiotics until finished Continue current diet foLow up with primary care provider upon discharge Discharge Disposition: HOME SELF-CARE
== END 2020-10-31 14:42 | disposition home or self-care (01) ==
LOC: EC 16:35 → 6NMEDSUR 18:29
PROVIDERS: ADMIT Internal Medicine; ATTEND Internal Medicine
DX: L02.212 Cutaneous abscess of back [any part, except buttock and flank] (principal); L03.90 Cellulitis, unspecified; B95.62 Methicillin resistant Staphylococcus aureus infection as the cause of diseases classified elsewhere; Z86.16 Personal history of COVID-19
CPT/HCPCS: 96376 ×4; 96361; 96366 ×5; 96367 ×2; 96372 ×4; 96375; 96365; 99284; 36415; 80053; 80048 ×2; 83605; 85025; 80202; 87070; 87205; 87075; 87077; 87186; G0378 ×5; J3370 ×5; J2405; J0692 ×2; J0295; J1644 ×4

== ENCOUNTER → 2021-02-15 | Outpatient (CLI) | payer BC ==
[2021-02-15 11:31] LABS: Basophils # (A) 0.06 X 10*3/uL (0.00-0.10); Basophils % (A) 1.1 %; Eosinophils # (A) 0.24 X 10*3/uL (0.04-0.35); Eosinophils % (A) 4.2 %; HCT 47.3 % (39.6-50.0); HGB 16.8 g/dL (13.0-17.0); Lymphocytes # (A) 1.03 X 10*3/uL (0.90-5.00); Lymphocytes % (A) 18.2 %; MCHC 35.5 g/dL (32.0-37.0); MCV 90.1 fL (80.0-97.0); Mean Platelet Volume 10.2 fL (9.5-12.2); Monocytes # (A) 0.54 X 10*3/uL (0.20-1.00); Monocytes % (A) 9.5 %; Neutrophils # (A) 3.78 X 10*3/uL (1.80-7.70); Neutrophils % (A) 66.6 %; Platelet Count 176 X 10*3/uL (140-440); RBC 5.25 X 10*6/uL (4.40-5.60); RDW 13.2 % (11.5-14.5); WBC 5.67 X 10*3/uL (4.50-10.00)
[2021-02-15 12:26] LABS: Protein, Total 6.8 g/dL (6.2-8.2)
[2021-02-15 12:59] LABS: ALT 40 U/L (10-49); AST 24 U/L (14-35); African American GFR (CKD) 80.6 (60.0-200.0); Albumin 4.5 g/dL (3.8-4.9); Albumin/Globulin Ratio 2.03 (1.60-3.17); Alkaline Phosphatase 67 U/L (41-126); BUN/Creat Ratio 15.71 Ratio (12.00-20.00); Blood Urea Nitrogen 17.6 mg/dL (9.0-27.0); Calcium 9.4 mg/dL (8.7-10.3); Carbon Dioxide 24.3 mmol/L (20.0-27.5); Chloride 103 mmol/L (96-109); Chol/HDL Ratio 5.93 Ratio; Globulin 2.2 g/dL (1.6-3.3); Glucose 95 mg/dL (70-110); LDL Cholesterol,Calculated 113.5 mg/dL (0.0-131.0); Non-African American GFR(CKD) 69.5 (60.0-200.0); Potassium 4.1 mmol/L (3.5-5.5); Sodium 141 mmol/L (135-145); Total Protein 6.7 g/dL (6.2-8.2)
[2021-02-15 14:10] LABS: Erythrocyte Sedimentation Rate 1 mm/Hr (0-20)
[2021-02-16 10:08] LABS: IgG Subclass 1 612.6 mg/dL (382.40-928.60); IgG Subclass 3 11.4 mg/dL (21.82-176.00); IgG Subclass 4 72.8 mg/dL (3.92-86.40)
[2021-02-16 14:40] LABS: Albumin 4.21 g/dL (3.80-4.90); Gamma Globulin 0.98 g/dL (0.70-1.50)
== END | disposition home or self-care (01) ==
LOC: LABWHC1 07:42
PROVIDERS: ATTEND Internal Medicine
DX: Z00.00 Encounter for general adult medical examination without abnormal findings (principal); L08.9 Local infection of the skin and subcutaneous tissue, unspecified
CPT/HCPCS: 36415; 80053; 80061; 82164; 82787; 84153; 84165; 84439; 84443; 85025; 85652

== ENCOUNTER 2021-11-03 21:12 | Emergency (ER) | payer BC ==
[2021-11-03 21:37] VITALS: RESP 18; TEMP 98.4
[2021-11-03 22:33] LABS: Appearance,Urine Clear (Clear); Bacteria,Urine Rare /hpf; Bilirubin,Urine Negative (Negative); Blood,Urine Large (Negative); Color,Urine Light Red; Glucose,Urine (UA) Negative (Negative); Ketones,Urine Negative (Negative); Leukocyte Esterase,Urine Small (Negative); Nitrite,Urine Negative (Negative); Protein,Urine Trace (Negative); RBC,Urine >182 /hpf (0-5); Specific Gravity,Urine 1.021 (1.001-1.035); Urobilinogen,Urine <2.0 mg/dL (<2.0); WBC,Urine 7 /hpf (0-5)
[2021-11-04 02:34] VITALS: BP 158/89; PULSE 75
--- NOTE | 2021-11-04 03:15 | CT ---
EXAMINATION TYPE: CT abdomen pelvis wo con DATE OF EXAM: 11/04/2021 COMPARISON: None HISTORY: poss kidney stone CT DLP: 837.4 mGycm Automated exposure control for dose reduction was used. Images obtained from the diaphragm to the floor the pelvis without contrast. The lung bases are clear. No pleural effusion. Heart size is normal. No pericardial effusion. There is 4 cm cyst in the left lobe of the liver. Spleen is intact. Stomach is intact. The bile ducts are not dilated. There is no pancreatic mass. Gallbladder appears normal. There is no adrenal mass. Kidneys have normal size. There is right-sided hydronephrosis and perinephr ic edema. There is a 12 mm obstructing calculus at the right ureteropelvic junction. There is 3 mm ca lculus lower pole right kidney. Left kidney shows no stone or obstruction. There is mild fat strandin g around the left kidney. No retroperitoneal adenopathy. Appendix is posterior and medial and appears normal. The bladder distends smoothly. No inguinal hernia. No free fluid in the pelvis. No pelvic ma ss. There are sigmoid diverticula without diverticulitis. There is no mesenteric edema. No ascites or free air. No bowel obstruction. The lumbar vertebra show a first-degree L5-S1 spondylolisthesis. There is bilateral L5 spondylolysis. There is disc space narr owing at L5-S1. No compression fracture. The bony pelvis is intact. IMPRESSION: Obstructing calculus at the right ureteropelvic junction. Small lower pole right renal calculus. Normal appendix. Sigmoid diverticulosis. Mild stranding around the left kidney could relate to a previous episode of obstruction.
[2021-11-04 03:21] LABS: Basophils % (A) 1 %; Eosinophils # (A) 0.2 k/uL (0-0.7); Eosinophils % (A) 3 %; HCT 47.1 % (39.0-53.0); HGB 16.4 gm/dL (13.0-17.5); Lymphocytes % (A) 13 %; MCH 31.9 pg (25.0-35.0); MCHC 34.9 g/dL (31.0-37.0); MCV 91.4 fL (80.0-100.0); Mean Platelet Volume 7.5; Monocytes # (A) 0.4 k/uL (0-1.0); Monocytes % (A) 5 %; Neutrophils # (A) 5.5 k/uL (1.3-7.7); Neutrophils % (A) 75 %; Platelet Count 154 k/uL (150-450); RBC 5.15 m/uL (4.30-5.90); RDW 13.3 % (11.5-15.5); WBC 7.4 k/uL (3.8-10.6)
[2021-11-04 03:46] LABS: Albumin 4.8 g/dL (3.5-5.0); Calcium 9.7 mg/dL (8.4-10.2); Potassium 4.1 mmol/L (3.5-5.1); Total Bilirubin 0.8 mg/dL (0.2-1.3); Total Protein 7.6 g/dL (6.3-8.2)
--- NOTE | 2021-11-04 06:25 | ED ---
General Adult HPI - General Chief complaint: Urogenital Stated complaint: R sided abd/back pain Time Seen by Provider: 11/04/21 05:30 Source: patient, RN notes reviewed, old records reviewed Mode of arrival: ambulatory - History of Present Illness Initial comments: Patient is a 66-year-old male with testing. Aspect history presents MRSA department complaining of right-sided abdominal pain and back pain. Concern for kidney stone. Does endorse hematuria. Denies any dysuria. Describes the pain as a sharp sensation. Radiates towards his groin. Endorses nausea. One episo de of emesis is nonbloody. Denies diarrhea. Denies any urinary issues otherwise. Denies chest pain or shortness of breath. Presents for further evaluation at this time over concern for possible kidney stone. Denies any fevers or chills. Denies chest pain or shortness of breath. - Related Data Previous Rx's Medication Instructions Recorded HYDROcodone/APAP 5-325MG [[place] 1 tab PO Q6HR PRN #15 tab 02/03/16 5-325] Cephalexin [Keflex] 500 mg PO QID 10 Days #40 cap 10/31/20 Ciprofloxacin HCl [Cipro] 500 mg PO BID 10 Days #20 tab 10/31/20 Tamsulosin [Flomax] 0.4 mg PO DAILY 7 Days #7 cap 11/04/21 methocarbamoL [Robaxin-750] 750 mg PO BID PRN 5 Days #10 tab 11/04/21 Allergies Allergy/AdvReac Type Severity Reaction Status Date / Time shellfish derived [Shellfish] Allergy Swelling Verified 11/03/21 21:37 Review of Systems ROS Statement: Those systems with pertinent positive or pertinent negative responses have been documented in the HPI. Review of Systems: CONST: Denies fever EYES: Denies blurry vision ENT: Denies nasal congestion C/V: Denies Chest pain RESP: Denies shortness of breath GI: Endorses abdominal pain : Denies dysuria SKIN: Denies rash. MSK: Denies joint pain. NEURO: Denies headache ROS Other: All systems not noted in ROS Statement are negative. Past Medical History Past Medical History: No Reported History Additional Past Medical History / Comment(s): seasonal allergies History of Any Multi-Drug Resistant Organisms: None Reported Past Surgical History: No Surgical Hx Reported Past Anesthesia/Blood Transfusion Reactions: No Reported Reaction Past Psychological History: No Psychological Hx Reported Smoking Status: Never smoker Past Alcohol Use History: None Reported Past Drug Use History: None Reported General Exam - General Exam Comments Initial Comments: General: Appears in no acute distress. HEAD: Normal with no signs of head trauma. EYES: PERRLA, EOMI, conjunctiva normal, no discharge. ENT: Hearing grossly intact, normal oropharynx. RESPIRATORY: Clear breath sounds bilaterally. No wheezes, rales, or rhonchi. C/V: Regular rate and rhythm. S1 and S2 auscultated, no edema, peripheral pulses 2+ and intact throughout ABD: Abd is soft, nontender, nondistended. Mild right flank tenderness to palpation. No guarding. No rebound tenderness. No CVA tenderness to percussion. No peritoneal signs. EXT: Normal range of motion, no obvious deformity SKIN: No rashes or lesions observed on exposed skin. NEURO: Alert and oriented 4. Course Vital Signs 11/03/21 11/04/21 21:34 02:33 Temperature 98.4 F Pulse Rate 82 75 Respiratory 18 18 Rate Blood Pressure 148/85 158/89 O2 Sat by Pulse 96 98 Oximetry Medical Decision Making - Medical Decision Making I evaluated the patient when he was placed in a room. Workup was already completed at that time. He presents over concern for right-sided abdominal pain and flank pain. Laboratory studies are remarkable for mild elevated creatinine of 1.66. There is a large amount of blood in his urine but no signs of acute infection. CT revealed a large 12 mm right-sided UPJ obstructing stone with [place]. I spoke with the patient. He was in agreement to discharge or admission. I did speak with urology on-call, Dr. Ortega who recommended discharging the patient otherwise is resting comfortably, with no significant complaints. He was in agreement this plan. Patient will follow-up with Dr. Gerardo outpatient. He'll be discharged home with muscle relaxers at his request. He'll be given contact info for Dr. Gerardo. I will provide the patient with a prescription for Robaxin. I instructed the patient to follow up with their PCP in the next 1-3 days. I provided contact information for follow up with [facility]. I explained that the patient should return to the emergency department if they experience any worsening symptoms. Strict return precautions were discussed with the patient. The patient expressed understanding of these instructions. I answered all questions that the patient had. The patient was discharged home in fair condition with their prescriptions and follow up information. - Lab Data Result diagrams: 11/04/21 02:41 11/04/21 02:41 Lab Results 11/03/21 11/04/21 11/04/21 Range/Units 22:20 02:41 02:41 WBC 7.4 (3.8-10.6) k/uL RBC 5.15 (4.30-5.90) m/uL Hgb 16.4 (13.0-17.5) gm/dL Hct 47.1 (39.0-53.0) % MCV 91.4 (80.0-100.0) fL MCH 31.9 (25.0-35.0) pg MCHC 34.9 (31.0-37.0) g/dL RDW 13.3 (11.5-15.5) % Plt Count 154 (150-450) k/uL MPV 7.5 Neutrophils % 75 % Lymphocytes % 13 % Monocytes % 5 % Eosinophils % 3 % Basophils % 1 % Neutrophils # 5.5 (1.3-7.7) k/uL Lymphocytes # 1.0 (1.0-4.8) k/uL Monocytes # 0.4 (0-1.0) k/uL Eosinophils # 0.2 (0-0.7) k/uL Basophils # 0.0 (0-0.2) k/uL Sodium 139 (137-145) mmol/L Potassium 4.1 (3.5-5.1) mmol/L Chloride 102 (98-107) mmol/L Carbon Dioxide 22 (22-30) mmol/L Anion Gap 15 mmol/L BUN 20 (9-20) mg/dL Creatinine 1.66 H (0.66-1.25) mg/dL Est GFR (CKD-EPI)AfAm 50 (>60 ml/min/1.73 sqM) Est GFR (CKD-EPI)NonAf 43 (>60 ml/min/1.73 sqM) Glucose 92 (74-99) mg/dL Calcium 9.7 (8.4-10.2) mg/dL Total Bilirubin 0.8 (0.2-1.3) mg/dL AST 30 (17-59) U/L ALT 36 (4-49) U/L Alkaline Phosphatase 90 (38-126) U/L Total Protein 7.6 (6.3-8.2) g/dL Albumin 4.8 (3.5-5.0) g/dL Urine Color Light Red Urine Appearance Clear (Clear) Urine pH 6.0 (5.0-8.0) Ur Specific [place] 1.021 (1.001-1.035) Urine Protein Trace H (Negative) Urine Glucose (UA) Negative (Negative) Urine Ketones Negative (Negative) Urine Blood Large H (Negative) Urine Nitrite Negative (Negative) Urine Bilirubin Negative (Negative) Urine Urobilinogen <2.0 (<2.0) mg/dL Ur Leukocyte Esterase Small H (Negative) Urine RBC >182 H (0-5) /hpf Urine WBC 7 H (0-5) /hpf Urine Bacteria Rare H (None) /hpf Disposition Clinical Impression: Nephrolithiasis Disposition: HOME SELF-CARE Condition: Fair Instructions (If sedation given, give patient instructions): Kidney Stones (ED) Prescriptions: Tamsulosin [Flomax] 0.4 mg PO DAILY 7 Days #7 cap methocarbamoL [Robaxin-750] 750 mg PO BID PRN 5 Days #10 tab PRN Reason: Pain Is patient prescribed a controlled substance at d/c from ED?: No Referrals: None,Stated [Primary Care Provider] - 1-2 days Satya Gerardo MD [STAFF PHYSICIAN] - 1-2 days Time of Disposition: 06:15
[2021-11-04] MEDS ORDERED: KETOROLAC 15 MG/ML 1 ML VIAL IVP STA (06:30)
== END 2021-11-04 06:45 | disposition home or self-care (01) ==
LOC: EC 21:12
DX: N13.2 Hydronephrosis with renal and ureteral calculous obstruction (principal); Z91.013 Allergy to seafood
CPT/HCPCS: 36415; 80053; 85025; 81001; 74176; 99284; 96374; J1885

== ENCOUNTER 2021-11-09 10:24 | Day surgery (SDC) | payer BC ==
[2021-11-08 09:00] VITALS: BMI 32.0
--- NOTE | 2021-11-09 10:30 | P.GSHP ---
History of Present Illness H&P Date: 11/09/21 Chief Complaint: Right flank pain The patient is a 66-year-old male with no prior history of urolithiasis. He recently presented with right flank pain radiating to the right lower abdomen, which began in late October. CT scan shows evidence of right hydronephrosis due to a 12 mm right UPJ calculus. A 3 mm right lower pole renal calculus was also seen. He was offered alternative treatment options, namely ESWL versus ureteroscopy with laser lithotripsy. The pros, cons, and risks of each were reviewed and he has elected to undergo ureteroscopy with laser lithotripsy and stent placement. - Constitutional Constitutional: Denies chills, Denies fever - Gastrointestinal Gastrointestinal: Reports nausea, Reports vomiting - Genitourinary (Male) Genitourinary: Reports flank pain, Reports hematuria, Reports kidney stones, Denies dysuria Past Medical History Past Medical History: No Reported History Additional Past Medical History / Comment(s): seasonal allergies. KIDNEY STONES History of Any Multi-Drug Resistant Organisms: None Reported Past Surgical History: Orthopedic Surgery Additional Past Surgical History / Comment(s): COLONOSCOPY. ORIF LT ANKLE Past Anesthesia/Blood Transfusion Reactions: No Reported Reaction Smoking Status: Never smoker - Past Family History Mother Family Medical History: Cancer Additional Family Medical History / Comment(s): COLON. SKIN Medications and Allergies Home Medications Medication Instructions Recorded Confirmed Type Tamsulosin [Flomax] 0.4 mg PO DAILY 7 Days #7 cap 11/04/21 11/08/21 Rx methocarbamoL [Robaxin-750] 750 mg PO BID PRN 5 Days #10 tab 11/04/21 11/08/21 Rx Allergies Allergy/AdvReac Type Severity Reaction Status Date / Time shellfish derived [Shellfish] Allergy Swelling Verified 11/08/21 08:49 Surgical - Exam - General well developed, well nourished, no distress - Neck no masses, trachea midline - Respiratory normal respiratory effort - Abdomen Abdomen: soft, non tender, no guarding, no rigid, no rebound Hernia: umbilical - Genitourinary normal penis with no external lesions, testicles non-tender - Psychiatric oriented to time, oriented to person, oriented to place, speech is normal, memory intact Results - Imaging CT scan - abdomen: report reviewed, image reviewed Assessment and Plan (1) Calculus of ureter Current Visit: Yes Status: Acute Code(s): N20.1 - CALCULUS OF URETER SNOMED Code(s): 89949372 (2) Nephrolithiasis Current Visit: No Status: Acute Code(s): N20.0 - CALCULUS OF KIDNEY SNOMED Code(s): 55646860 Plan: Cystoscopy, right ureteroscopy with Holmium laser lithotripsy, right ureteral stent insertion. Stone basketing may be required. The procedure has been reviewed in detail with the patient and his . They have been made aware of potential risks, which include anesthesia, bleeding, infection, and ureteral injury. They are also aware of the possible need for a secondary procedure.
[2021-11-09] MEDS ORDERED: LACTATED RINGERS 1,000 ML IV ONE (11:27)
[2021-11-09] MEDS ORDERED: DEXAMETHASONE SOD PHOSPHATE 4 MG/ML 1 ML VIAL IVP ONE (11:37)
[2021-11-09] MEDS ORDERED: ONDANSETRON 4 MG/2 ML VIAL IVP ONE (11:38)
[2021-11-09] MEDS ORDERED: SUCCINYLCHOLINE CHLORIDE 200 MG/10 ML VIAL IV ONE (11:56)
[2021-11-09] MEDS ORDERED: fentaNYL (PF) 50 MCG/ML 2 ML AMP ONE (11:56)
[2021-11-09] MEDS ORDERED: PROPOFOL 10 MG/ML 20 ML VIAL IV ONE (11:56)
[2021-11-09] MEDS ORDERED: LIDOCAINE 2% INJ 20 MG/ML (2 ML VIAL) ONE (11:56)
[2021-11-09] MEDS ORDERED: MIDAZOLAM 2 MG/2 ML VIAL ONE (11:56)
--- NOTE | 2021-11-09 12:24 | XR ---
KUB HISTORY: Kidney stones Frontal KUB and [address] scan 11/04/2021 Calcification at the level of the proximal right ureter is again seen measuring approximately 12 mm. Punctate calcification at the level lower pole the right kidney not seen with certainty, there is ove rlying bowel gas. Degenerative disc changes are present visualized spine. Probable phlebolith noted w ithin the pelvis. IMPRESSION: Proximal right ureteral calculus. Additional findings above.
--- NOTE | 2021-11-09 13:41 | P.OP ---
Date of Procedure: 11/09/21 Preoperative Diagnosis: Right renal calculus, right ureteral calculus Postoperative Diagnosis: Right ureteral calculus Procedure(s) Performed: Cystoscopy, right ureteroscopy with Holmium laser lithotripsy and stone basketing, right ureteral stent insertion Anesthesia: MAGDALENE Surgeon: Jeovanny Wheeler Estimated Blood Loss (ml): 5 IV fluids (ml): 600 Pathology: other (Calculus fragments, sent for chemical analysis) Condition: stable Disposition: PACU Indications for Procedure: The patient is a 66-year-old male with no prior history of urolithiasis. He recently presented with right flank pain radiating to the right lower abdomen, which began in late October. CT scan shows evidence of right hydronephrosis due to a 12 mm right UPJ calculus. A 3 mm right lower pole renal calculus was also seen. He was offered alternative treatment options, namely ESWL versus ureteroscopy with laser lithotripsy. The pros, cons, and risks of each were reviewed and he has elected to undergo ureteroscopy with laser lithotripsy and stent placement. Operative Findings: 12 mm right proximal ureteral calculus, fragmented completely. A right renal calculus was not found. Description of Procedure: The patient was taken to the operating room and placed in the dorsolithotomy position, with legs supported in Tima stirrups. The external genitalia was prepped and draped sterilely. The 30 lens was used to introduce the 21-Monegasque Singh cystoscopic sheath through the urethra and into the bladder under direct vision. The prostatic urethra showed evidence of mild lateral lobe enlargement. The bladder was examined in its entirety. Both ureteral orifices were normal anatomic location and configuration, and clear urine effluxed from both. No tumors or foreign bodies were seen. A 0.038 inch Glidewire was passed through the cystoscope. The right ureteral orifice was cannulated, and the Glidewire was advanced up to the renal pelvis. The cystoscope was removed, and an 11/13- Monegasque ureteral access catheter was passed over the wire, up to the proximal ureter. The flexible ureteroscope was then passed through the ureteral access catheter sheath and advanced under direct vision up to the stone. The 272 micron Holmium laser probe was passed through the ureteroscope, and lithotripsy was performed. After fragmenting the calculus, it refluxed into an upper pole calyx. Lithotripsy was completed there. This was initially performed utilizing a dusting mode, but some fragments were created which were removed using a 1.9- Monegasque nitinol basket. The remaining debris was popcorned, leaving only dust behind. Each calyx was examined. No additional calculi were seen. The ureteroscope was slowly removed under direct vision. There was no evidence of ureteral trauma. The Glidewire was passed through the ureteral access catheter sheath, which was removed. The Glidewire was backloaded into the cystoscope, which was passed into the bladder. A 26 cm, 4.8-Monegasque double-J ureteral stent was placed over the wire. Proper stent positioning was verified fluoroscopically and endoscopically. The bladder was emptied and the cystoscope removed. The patient tolerated the procedure well and was taken to the recovery room in stable condition. [facility] [place] Procedure Acuity: Urgent Stone Size and Location: 12 mm, right proximal ureter (UPJ) Ureteral Dilation: No Ureteral Access Sheath Used: Yes Stone Sent for Analysis: Yes All Stones/Fragments Were Removed with a Basket: No Complications: No Preoperative Antibiotics Given: Yes Stent Placed: Yes If Stent Placed, Was String Left Attached: No If Stent Placed, When is it to be Removed: 1 week Discharge Medications: Tamsulosin, Toradol
[2021-11-09 14:02] VITALS: TEMP 97.3
[2021-11-09 14:04] VITALS: RESP 16
--- NOTE | 2021-11-09 14:21 | FL ---
Fluoroscopy HISTORY: Right ureteral calculus 15 seconds fluoroscopy time supplied to the referring clinician. 3 intraoperative C-arm images docum ent the procedure. See dictated report from urology.
[2021-11-09 14:46] VITALS: PULSE 78
[2021-11-09 15:02] VITALS: BP 123/78
== END 2021-11-09 15:30 | disposition home or self-care (01) ==
LOC: OR 10:24
PROVIDERS: ATTEND Urology
DX: N20.1 Calculus of ureter (principal); N13.30 Unspecified hydronephrosis; R10.31 Right lower quadrant pain; Z87.442 Personal history of urinary calculi; Z96.662 Presence of left artificial ankle joint; Z98.890 Other specified postprocedural states; Z80.0 Family history of malignant neoplasm of digestive organs; Z80.8 Family history of malignant neoplasm of other organs or systems; Z91.013 Allergy to seafood; Z46.6 Encounter for fitting and adjustment of urinary device
CPT/HCPCS: 52356; 82365; 74018; C2625; C1769; J2250; J0330; J1100; J0690; J2405; J3010; J2704; J2001

== ENCOUNTER → 2021-12-28 | Outpatient (CLI) | payer BC ==
--- NOTE | 2021-12-28 12:55 | US ---
EXAMINATION TYPE: US kidneys/renal and bladder DATE OF EXAM: 12/28/2021 COMPARISON: NONE CLINICAL HISTORY: 66-year-old male N20.1 CALCULUS OF URETER. History of kidney stones, lithotripsy 5 weeks ago TECHNIQUE: Multiple sonographic images of the kidneys and bladder are seen. FINDINGS: EXAM MEASUREMENTS: Right Kidney: 11.6 x 5.0 x 5.2 cm Left Kidney: 11.9 x 5.6 x 5.6 cm Right Kidney: Echogenic focus at the lower pole = 0.9cm there is no hydronephrosis. Left Kidney: no evidence of hydronephrosis or mass Bladder: wnl Bilateral Jets seen: yes IMPRESSION: 1. A 9 mm echogenic focus at the right lower pole suggesting a nonobstructive stone. 2. No hydronephrosis on either side.
== END | disposition home or self-care (01) ==
LOC: RADUSWWP 10:19
PROVIDERS: ATTEND Urology
DX: N20.1 Calculus of ureter (principal)
CPT/HCPCS: 76770

== ENCOUNTER 2023-08-16 12:23 | Inpatient (IN) | payer BC, MEDICARE ==
--- NOTE | 2023-08-16 12:52 | ED ---
General Adult HPI - General Chief complaint: Fall Stated complaint: Fall Time Seen by Provider: 08/16/23 12:31 Source: patient, EMS, RN notes reviewed Mode of arrival: EMS Limitations: no limitations - History of Present Illness Initial comments: Patient is a 68-year-old male presenting to the emergency department with concerns for right hip pain. Patient was cleaning gutters, approximately 5 feet up on a ladder. Patient states the ladder got away from him and he landed on his right hip. Patient did not attempt to ambulate. Patient states discomfort is significantly improved and only present with movement now. No other area of injury or concern. No new neck or back pain. No head injury or loss of consciousness. No chest pain or dyspnea. No abdominal pain - Related Data Previous Rx's Medication Instructions Recorded Tamsulosin [Flomax] 0.4 mg PO DAILY 7 Days #7 cap 11/04/21 methocarbamoL [Robaxin-750] 750 mg PO BID PRN 5 Days #10 tab 11/04/21 Ketorolac [Toradol] 10 mg PO Q6HR PRN #12 tab 11/09/21 Tamsulosin [Flomax] 0.4 mg PO DAILY #14 cap 11/09/21 Allergies Allergy/AdvReac Type Severity Reaction Status Date / Time shellfish derived [Shellfish] Allergy Swelling Verified 08/16/23 12:35 Review of Systems ROS Statement: Those systems with pertinent positive or pertinent negative responses have been documented in the HPI. ROS Other: All systems not noted in ROS Statement are negative. Constitutional: Denies: fever Eyes: Denies: eye pain ENT: Denies: ear pain Respiratory: Denies: cough, dyspnea Cardiovascular: Denies: chest pain Gastrointestinal: Denies: abdominal pain Past Medical History Past Medical History: No Reported History Additional Past Medical History / Comment(s): seasonal allergies. KIDNEY STONES History of Any Multi-Drug Resistant Organisms: None Reported Past Surgical History: Orthopedic Surgery Additional Past Surgical History / Comment(s): COLONOSCOPY. ORIF LT ANKLE Past Anesthesia/Blood Transfusion Reactions: No Reported Reaction Past Psychological History: No Psychological Hx Reported Smoking Status: Never smoker Past Alcohol Use History: None Reported Past Drug Use History: None Reported - Past Family History Mother Family Medical History: Cancer Additional Family Medical History / Comment(s): COLON. SKIN General Exam Limitations: no limitations General appearance: alert, in no apparent distress Head exam: Present: normocephalic Eye exam: Present: normal appearance ENT exam: Present: normal oropharynx Neck exam: Present: normal inspection. Absent: tenderness Respiratory exam: Present: normal lung sounds bilaterally Cardiovascular Exam: Present: regular rate, normal rhythm GI/Abdominal exam: Present: soft. Absent: tenderness Extremities exam: Present: tenderness (Mild right lateral hip. Distally the extremity is neurovascular intact). Absent: pedal edema, calf tenderness Back exam: Present: normal inspection. Absent: vertebral tenderness Neurological exam: Present: alert, CN II-XII intact. Absent: motor sensory deficit Psychiatric exam: Present: normal affect, normal mood Skin exam: Present: normal color Course Vital Signs 08/16/23 08/16/23 12:39 13:56 Temperature 99.5 F Pulse Rate 84 85 Respiratory 16 18 Rate Blood Pressure 108/64 119/84 O2 Sat by Pulse 94 L 96 Oximetry Medical Decision Making - Medical Decision Making Was pt. sent in by a medical professional or institution (, PA, AUTO DESIGN CHECKER, urgent care, hospital, or fpc...) When possible be specific @ -No Did you speak to anyone other than the patient for history (EMS, parent, family, police, friend...)? What history was obtained from this source @ -No Did you review nursing and triage notes (agree or disagree)? Why? @ -I reviewed and agree with nursing and triage notes Were old charts reviewed (outside hosp., previous admission, EMS record, old EK G, old radiological studies, urgent care reports/EKG's, fpc records)? Report findings @ -No old charts were reviewed Differential Diagnosis (chest pain, altered mental status, abdominal pain women, abdominal pain men, vaginal bleeding, weakness, fever, dyspnea, syncope, headache, dizziness, GI bleed, back pain, seizure, CVA, palpatations, mental health, musculoskeletal)? @ -MDM differential differential Musculoskeletal Muscular strain, contusion, ligament sprain, fracture, arthritis, septic arthritis, bursitis, cellulitis, muscle spasm, nerve compression, DVT, arterial occlusion, herpes zoster, electrolyte abnormality, tumor.... This is not meant to be in all inclusive list EKG interpreted by me (3pts min.). @ -As above X-rays interpreted by me (1pt min.). @ -X-ray right hip shows right intertrochanteric fracture CT interpreted by me (1pt min.). @ -None done U/S interpreted by me (1pt. min.). @ -None done What testing was considered but not performed or refused? (CT, X-rays, U/S, labs)? Why? @ -None What meds were considered but not given or refused? Why? @ -None Did you discuss the management of the patient with other professionals (professionals i.e. Dr., PA, AUTO DESIGN CHECKER, lab, RT, psych nurse, social worker delinquency prevention, headmaster/mistress, teacher, hospital security officer, manager case)? Give summary @ -Case discussed with Dr. Dockery who will admit covering orthopedic call. Was smoking cessation discussed for >3mins.? @ -No Was critical care preformed (if so, how long)? @ -No Were there social determinants of health that impacted care today? How? (Homelessness, low income, unemployed, alcoholism, drug addiction, transportation, low edu. Level, literacy, decrease access to med. care, usp, rehab)? @ -No Was there de-escalation of care discussed even if they declined (Discuss DNR or withdrawal of care, Hospice)? DNR status @ -No What co-morbidities impacted this encounter? (DM, HTN, Smoking, COPD, CAD, Cancer, CVA, ARF, Chemo, Hep., AIDS, mental health diagnosis, sleep apnea, morbi d obesity)? @ -None Was patient admitted / discharged? Hospital course, mention meds given and route, prescriptions, significant lab abnormalities, going to OR and other pertinent info. @ -Patient presents with fall and right hip pain. X-ray with IT fracture. Patient will be admitted to orthopedics with medical's consult with probable surgery tomorrow. Undiagnosed new problem with uncertain prognosis? @ -No Drug Therapy requiring intensive monitoring for toxicity (Heparin, Nitro, Insulin, Cardizem)? @ -No Were any procedures done? @ -No Diagnosis/symptom? @ -Right IT fracture Acute, or Chronic, or Acute on Chronic? @ -Acute Uncomplicated (without systemic symptoms) or Complicated (systemic symptoms)? @ -Default Side effects of treatment? @ -No Exacerbation, Progression, or Severe Exacerbation? @ -No Poses a threat to life or bodily function? How? (Chest pain, USA, IA, pneumonia, PE, COPD, DKA, ARF, appy, cholecystitis, CVA, Diverticulitis, Homicidal, Suicidal, threat to staff... and all critical care pts) @ -No Disposition Clinical Impression: Intertrochanteric fracture, Fall Disposition: ADMITTED IP TO THIS HOSP Is patient prescribed a controlled substance at d/c from ED?: No Referrals: Kate Chatterjee MD [Primary Care Provider] - 1-2 days Time of Disposition: 14:06
[2023-08-16] MEDS: KETOROLAC 15 MG/ML 1 ML VIAL IM STA (13:12)
--- NOTE | 2023-08-16 13:51 | XR ---
EXAMINATION TYPE: XR Hip RT and AP Pelvis DATE OF EXAM: 08/16/2023 COMPARISON: NONE HISTORY: Pain TECHNIQUE: A single AP view of the pelvis is obtained. Two views of the right hip are obtained. FINDINGS: There is acute displaced fracture involving the trochanteric region. Fracture appears comm inuted. Degenerative change lower lumbar spine. Degenerative findings involving the iliac crest. Hyp ertrophic bilateral arthropathy IMPRESSION: 1. Acute displaced fracture or intertrochanteric region right femur. .
[2023-08-16] MEDS ORDERED: NALOXONE 0.4 MG/ML 1 ML VIAL IV PRN (14:06)
[2023-08-16] MEDS: SODIUM CHLORIDE 0.9% 1,000 ML IV SCH (14:31)
[2023-08-16 14:42] LABS: Basophils % (A) 0 %; Eosinophils # (A) 0.1 k/uL (0-0.7); Eosinophils % (A) 1 %; Lymphocytes # (A) 0.6 k/uL (1.0-4.8); Lymphocytes % (A) 7 %; MCH 31.8 pg (25.0-35.0); MCHC 33.9 g/dL (31.0-37.0); MCV 93.9 fL (80.0-100.0); Mean Platelet Volume 7.7; Monocytes # (A) 0.4 k/uL (0-1.0); Monocytes % (A) 5 %; Neutrophils # (A) 7.3 k/uL (1.3-7.7); Neutrophils % (A) 86 %; Platelet Count 165 k/uL (150-450); Prothrombin Time 11.4 sec (10.0-12.5); RBC 5.01 m/uL (4.30-5.90); RDW 12.9 % (11.5-15.5); WBC 8.5 k/uL (3.8-10.6)
[2023-08-16 15:58] LABS: ALT 48 U/L (4-49); AST 39 U/L (17-59); African American GFR (CKD) >90 (>60 ml/min/1.73 sqM); Albumin 4.4 g/dL (3.5-5.0); Albumin/Globulin Ratio 1.7; Alkaline Phosphatase 75 U/L (38-126); Anion Gap 5 mmol/L; Blood Urea Nitrogen 16 mg/dL (9-20); Calcium 9.3 mg/dL (8.4-10.2); Carbon Dioxide 24 mmol/L (22-30); Chloride 110 mmol/L (98-107); Globulin 2.6 g/dL; Glucose 94 mg/dL (74-99); Non-African American GFR(CKD) >90 (>60 ml/min/1.73 sqM); Potassium 4.1 mmol/L (3.5-5.1); Sodium 139 mmol/L (137-145); Total Bilirubin 0.8 mg/dL (0.2-1.3)
[2023-08-16] MEDS: FAMOTIDINE 20 MG TAB PO SCH (16:49)
[2023-08-16] MEDS: ACETAMINOPHEN TAB 325 MG TAB PO PRN (21:17)
--- NOTE | 2023-08-16 21:22 | P.HPOR ---
History of Present Illness H&P Date: 08/16/23 the patient is a very pleasant relatively healthy 68-year-old male who was admitted under my care with a right intertrochanteric hip fracture. According to the patient earlier today he fell off a ladder injuring his right hip. He was unable to ambulate. He was brought to the emergency department where x-rays showed a right hip fracture. At the time of my evaluation the patient is complaining of isolated pain in his hip. He has no other complaints. Past Medical History Past Medical History: No Reported History Additional Past Medical History / Comment(s): seasonal allergies. KIDNEY STONES History of Any Multi-Drug Resistant Organisms: None Reported Past Surgical History: Orthopedic Surgery Additional Past Surgical History / Comment(s): COLONOSCOPY. ORIF LT ANKLE Past Anesthesia/Blood Transfusion Reactions: No Reported Reaction Past Psychological History: No Psychological Hx Reported Smoking Status: Never smoker Past Alcohol Use History: None Reported Past Drug Use History: None Reported - Past Family History Mother Family Medical History: Cancer Additional Family Medical History / Comment(s): COLON. SKIN Medications and Allergies Home Medications Medication Instructions Recorded Confirmed Type Naproxen Sodium [Aleve] 440 mg PO DAILY PRN 08/16/23 08/16/23 History Allergies Allergy/AdvReac Type Severity Reaction Status Date / Time shellfish derived [Shellfish] Allergy Swelling Verified 08/16/23 14:23 Physical Examination the patient is resting comfortably in bed. He is alert and able to answer questions. His head is normocephalic and atraumatic. He demonstrate nonlabored breathing symmetric chest expansion. On inspection of the right leg it is shortened and slightly externally rotated. He has pain with any attempts at passive range of motion. There are no open wounds or skin lesions. His thigh a nd calf are soft. He is nontender over the knee or ankle. He is able to actively plantar flex or dorsiflex his ankle and his toes. Results right intertrochanteric hip fracture - Labs Labs: Abnormal Lab Results - Last 24 Hours (Table) 08/16/23 08/16/23 Range/Units 14:28 14:57 Lymphocytes # 0.6 L (1.0-4.8) k/uL Chloride 110 H (98-107) mmol/L H & H 08/16/23 Range/Units 14:28 Hgb 16.0 (13.0-17.5) gm/dL Hct 47.0 (39.0-53.0) % Coagulation 08/16/23 Range/Units 14:28 INR 1.0 (<1.2) Result Diagrams: 08/16/23 14:28 08/16/23 14:57 Assessment and Plan Assessment: right intertrochanteric hip fracture Plan: the patient has a right two-part intertrochanteric hip fracture. My recommendation is to proceed with operative fixation to allow early mobilization and weightbearing. We discussed operative fixation with a short intramedullary hip screw. We discussed the risks and potential complications. The patient understands these risks and was given time to ask questions. Internal medicine is been consulted for preoperative clearance and perioperative medical management. In the interim the patient is to be strictly nonweightbearing and on bedrest. He'll be nothing by mouth after midnight in anticipation for surge ry tomorrow.
[2023-08-16] MEDS: MORPHINE SULFATE 4 MG/ML SYRINGE IV PRN (23:06)
[2023-08-17] MEDS: LACTATED RINGERS 1,000 ML IV ONE (07:50)
[2023-08-17] MEDS: DEXAMETHASONE SOD PHOSPHATE 4 MG/ML 1 ML VIAL IVP STA (07:55)
[2023-08-17] MEDS ORDERED: DEXAMETHASONE SOD PHOSPHATE 4 MG/ML 1 ML VIAL IM STA (07:57)
[2023-08-17] MEDS: ONDANSETRON 4 MG/2 ML VIAL IVP STA (07:59)
[2023-08-17] MEDS ORDERED: fentaNYL (PF) 50 MCG/ML 2 ML AMP ONE (08:05)
[2023-08-17] MEDS ORDERED: KETAMINE HCL IN 0.9 % NACL 50 MG/5 ML SYRINGE ONE (08:05)
[2023-08-17] MEDS ORDERED: MIDAZOLAM 2 MG/2 ML VIAL ONE (08:05)
[2023-08-17] MEDS ORDERED: PROPOFOL 10 MG/ML 20 ML VIAL IV ONE (08:05)
[2023-08-17] MEDS: SODIUM CHLORIDE 0.9% 100 ML with ceFAZolin 2,000 MG IV ONE (08:08)
--- NOTE | 2023-08-17 09:42 | P.OP ---
Date of Procedure: 08/17/23 Preoperative Diagnosis: right intertrochanteric hip fracture Postoperative Diagnosis: same Procedure(s) Performed: operative fixation of right intertrochanteric hip fracture with short intramedullary hip screw Implants: [place] gamma nail Anesthesia: MAGDALENE Surgeon: Scott Dockery Estimated Blood Loss (ml): 100 IV fluids (ml): 800 Pathology: none sent Condition: stable Disposition: PACU Indications for Procedure: I met with the patient and their family preoperatively to discuss their injury and treatment options. They have an extra-capsular, intertrochanteric hip fracture and my recommendation was to stabilize the fracture with an intramedullary hip screw to facilitate early mobilization. We discussed the potential risks and complications of this surgical procedure including but certainly not limited to risks from anesthesia, superficial infection, deep infection, fracture nonunion, fracture malunion, hardware failure including broken hardware, varus collapse with lag screw cut out of the femoral head, progression of hip arthritis, limb length discrepancy, symptomatic hardware, need for further surgery including hardware removal and conversion to arthroplasty, DVT, PE, acute coronary event, pressure ulcers, urinary tract infection, failure to thrive, an inability to regain preinjury level of function, and possibly . The patient and their family understand these potential complications and also awknowledge that other less common complications are possible. They provided both their verbal and written consent to go forward with operative fixation of their hip fracture with an intramedullary hip screw. Description of Procedure: The patient was identified in preoperative holding and the correct operative extremity was marked with my initials. I reviewed the consent form with the patient and their family and all of their questions were answered. The patient was then brought back to the operating room by anesthesia. Anesthesia, preoperative antibiotics, and tranexamic acid were given by the anesthesia team while on the [facility]. Both ankles were padded with webril and boots for the [place] table were applied. The patient was then carefully transferred onto the [place] table. A perineal post was immediately placed. The contralateral arm was secured on a well-padded arm macias. The ipsilateral arm was draped across the chest and secured with a pillow, foam, and paper tape to allow access to the proximal femur. Nonsterile drapes were applied to the operative extremity. The height of the table was elevated and the contralateral extremity was dropped towards the floor to facilitate imaging. A timeout was performed identifying the correct patient, operative extremity, and procedure. Fluoroscopy was brought in to assess the fracture. A provisional reduction was performed using longitudinal traction, adduction, and internal rotation. An AP and lateral view were obtained to assess the reduction. The operative extremity was then prepped and draped in the standard sterile fashion. A straight incision was made at the tip of the greater trochanter and extended proximally for 3 cm. Skin and subcutaneous tissues were incised sharply. The underlying fascia was incised in line with the skin incision. An awl was placed just medial to the tip of the greater trochanter on the AP view and colinear with the canal on the lateral view. A 3.2 mm guide pin was then advanced into the proximal femur. The position of the guidepin was verified with fluoroscopy. An opening reamer and soft tissue cannula were placed over the guidepin and used to open the proximal femur to the level of the lesser trochanter. The 3.2 mm guide pin and opening reamer were removed. A short gamma nail was dispensed, hooked up to the targeting arm and I verified that the trochar through the targeting arm lined up with the slots on the nail. The nail was then impacted into the proximal femur until the appropriate depth had been reached. A small stab incision was made over the lateral aspect of the femur using the targeting arm as a reference for the lag screw. Incision was carried down to the skin and fascia down to the lateral cortex of the femur. The trocar was then placed up to the lateral cortex of the femur and a guidepin was placed in the low center position on the AP view and centered in the femoral head on the lateral view. Once the position of the guidewire was verified, we reamed to appropriate depth and placed a lag screw over the guidewire and into the femoral head. The position of the lag screw was assessed with fluoroscopy. The guid ewire was then removed from the femoral head. The set screw was placed proximally, brought fully down and then released a quarter turn to allow compression. A final stab incision was made over the lateral femur at the site of the distal interlocking screw, again using the targeting arm as a reference. The trocar and sleeve were placed to the lateral cortex of the femur. We then drilled and placed a distal interlocking screw. Final fluoroscopic images were taken showing excellent reduction of the fracture and appropriate position of the implants. All wounds were thoroughly irrigated and closed in layers. Sterile dressings were applied. The drapes were taken down, the patient was transferred off the [place] table, and was brought to recovery having tolerated the procedure well. PLAN: The patient can weight-bear as tolerated on their operative extremity. 2 doses of postoperative antibiotics. DVT prophylaxis with aspirin 81 mg twice a day starting the day of surgery. Dressing change on postoperative day #2. Appreciate Internal Medical assistance with perioperative medical management. Discharge planning in process.
[2023-08-17] MEDS ORDERED: NALOXONE 0.4 MG/ML 1 ML VIAL IV PRN (09:54)
[2023-08-17] MEDS ORDERED: HYDROcodone/APAP 10-325MG 1 EACH TAB PO PRN (09:54)
[2023-08-17] MEDS ORDERED: MAGNESIUM HYDROXIDE 2,400 MG/30 ML CUP PO PRN (09:54)
[2023-08-17] MEDS ORDERED: HYDROmorphone 1 MG/ML 1 ML SYRINGE IVP PRN (09:54)
[2023-08-17] MEDS ORDERED: HYDROmorphone 0.5 MG/0.5 ML SYRINGE IVP PRN (09:54)
--- NOTE | 2023-08-17 10:25 | P.CONS ---
History of Present Illness - Reason for Consult Consult date: 08/17/23 - History of Present Illness Julio Arias is a 68-year-old male patient Who presented to the ER with concerns of increased right hip pain after sustaining a fall from a 5 foot ladder while cleaning his gutters. Patient reports he landed on his right hip no further injuries noted. According to records medical records patient does not have a significant medical history negative for smoking. Patient has a history of previous left ankle surgery.X-ray completed showing acute displaced fracture or intertrochanteric region right femur. Patient admitted to orthopedic services with plans for surgical intervention. Lab work revealing white blood cell 8.5, hemoglobin 16.0, creatinine 0.84 bun 16. Vital signs temp 96.9, heart rate 82, respiratory rate 18, blood pressure 115/66 with pulse ox of 95% on room air. Review of Systems Please refer to HPI otherwise unremarkable Past Medical History Past Medical History: No Reported History Additional Past Medical History / Comment(s): seasonal allergies. KIDNEY STONES History of Any Multi-Drug Resistant Organisms: None Reported Past Surgical History: Orthopedic Surgery Additional Past Surgical History / Comment(s): COLONOSCOPY. ORIF LT ANKLE Past Anesthesia/Blood Transfusion Reactions: No Reported Reaction Past Psychological History: No Psychological Hx Reported Smoking Status: Never smoker Past Alcohol Use History: None Reported Past Drug Use History: None Reported - Past Family History Mother Family Medical History: Cancer Additional Family Medical History / Comment(s): COLON. SKIN Medications and Allergies Home Medications Medication Instructions Recorded Confirmed Type Naproxen Sodium [Aleve] 440 mg PO DAILY PRN 08/16/23 08/16/23 History Aspirin 81 mg PO BID #60 tab 08/17/23 Rx Docusate [Colace] 100 mg PO BID #60 capsule 08/17/23 Rx HYDROcodone/APAP 5-325MG [[place] 1 - 2 tab PO Q6HR PRN #32 tab 08/17/23 Rx 5-325] Allergies Allergy/AdvReac Type Severity Reaction Status Date / Time shellfish derived [Shellfish] Allergy Swelling Verified 08/16/23 14:23 Physical Exam Vitals: Vital Signs Temp Pulse Pulse Resp BP BP Pulse Ox 08/17/23 10:08 69 18 110/65 96 08/17/23 09:53 68 16 116/68 98 08/17/23 09:38 96.9 F L 82 16 115/66 96 06/15/24 08:00 89 16 136/78 95 08/17/23 02:05 98.4 F 90 15 144/78 94 L 08/16/23 19:04 98.8 F 70 15 125/69 98 08/16/23 16:24 98.3 F 75 18 109/66 93 L 08/16/23 15:10 98.4 F 74 16 129/62 96 08/16/23 13:56 85 18 119/84 96 08/16/23 12:39 99.5 F 84 16 108/64 94 L Intake and Output 08/16/23 08/17/23 08/17/23 22:59 06:59 14:59 Intake Total 480 800 Output Total 100 Balance 480 700 Intake: IV 800 Oral 480 Output: Estimated Blood Loss 100 Other: Voiding Method Urinal # Voids 2 Weight 90.718 kg Head normocephalic Neck supple Lungs clear to auscultation bilaterally no wheezing or crackles Heart regular rate and rhythm S1-S2, no rub or gallop Abdomen is soft nontender nondistended positive bowel sounds no hepatosplenomegaly Extremities no edema Neuro alert and orientated to 3 Results CBC & Chem 7: 08/16/23 14:28 08/16/23 14:57 Labs: Abnormal Lab Results - Last 24 Hours (Table) 08/16/23 08/16/23 Range/Units 14:28 14:57 Lymphocytes # 0.6 L (1.0-4.8) k/uL Chloride 110 H (98-107) mmol/L Assessment and Plan Assessment: 1.Right intertrochanteric hip fractures status post fall. Plans for surgical intervention at 08/17/2023 2. Previous history of left ankle surgery 3. History of kidney stones Thank you for this consultation we will continue to follow patient closely throughout stay Repeat labs ordered for a.m.
[2023-08-17] MEDS: ONDANSETRON 4 MG/2 ML VIAL IVP PRN (11:07)
[2023-08-17 11:53] LABS: Basophils % (A) 0 %; Eosinophils % (A) 0 %; HCT 41.8 % (39.0-53.0); Lymphocytes # (A) 0.4 k/uL (1.0-4.8); Lymphocytes % (A) 4 %; MCH 32.3 pg (25.0-35.0); MCHC 33.6 g/dL (31.0-37.0); MCV 96.3 fL (80.0-100.0); Mean Platelet Volume 7.6; Monocytes # (A) 0.2 k/uL (0-1.0); Monocytes % (A) 2 %; Neutrophils # (A) 8.9 k/uL (1.3-7.7); Neutrophils % (A) 93 %; Platelet Count 139 k/uL (150-450); RBC 4.34 m/uL (4.30-5.90); RDW 12.8 % (11.5-15.5); WBC 9.6 k/uL (3.8-10.6)
--- NOTE | 2023-08-17 12:57 | XR ---
EXAMINATION TYPE: XR chest 1V DATE OF EXAM: 08/17/2023 COMPARISON: NONE HISTORY: Preop TECHNIQUE: Single frontal view of the chest is obtained. FINDINGS: There is no focal air space opacity, pleural effusion, or pneumothorax seen. The cardiac silhouette size is within normal limits. The osseous structures are intact. Diffuse osteopenia. Cannot exclude mild emphysematous changes. Coarsened interstitium likely reflects a degree of chronic interstitial lung disease. IMPRESSION: No acute process.
[2023-08-17] MEDS: HYDROcodone/APAP 5-325MG 1 EACH TAB PO PRN (15:16)
--- NOTE | 2023-08-17 15:21 | FL ---
EXAMINATION TYPE: FL guidance operating room, XR Hip Complete RT Intraoperative/procedural fluoroscop ic services were provided. Total fluoroscopy time is 43.0 seconds with a total of 5 submitted images to PACS. Please see the operative/procedural note for further details. DAP: 8.3322 Gycm2
[2023-08-17] MEDS: SENNOSIDES-DOCUSATE SODIUM 1 EACH TAB PO SCH (20:47)
[2023-08-17] MEDS: ASPIRIN 81 MG PO SCH (20:47)
--- NOTE | 2023-08-18 09:05 | P.PN ---
Subjective Patient is doing well this morning. He has minimal discomfort in his right hip. He is sitting up in a chair. He denies chest pain or shortness of breath. Objective - Vital Signs Vital signs: Vital Signs Temp 98.3 F 08/18/23 07:11 Pulse 76 08/18/23 07:11 Resp 18 08/18/23 07:11 BP 118/71 08/18/23 07:11 Pulse Ox 97 08/18/23 07:11 FiO2 Intake & Output 08/17/23 08/18/23 08/18/23 18:59 06:59 18:59 Intake Total 800 Output Total 500 1300 Balance 300 -1300 Intake: IV 800 Output: Urine 400 1300 Estimated Blood Loss 100 Other: Voiding Method Toilet Urinal # Voids 1 - Exam The patient is sitting in a chair at bedside. He is alert and able to answer questions. On inspection of the right hip as surgical dressings are intact with no drainage or Daniel. He has mild swelling in his thigh. He is able to extend his knee and actively plantarflex and dorsiflex his ankle and his toes. - Labs CBC & Chem 7: 08/17/23 11:40 08/16/23 14:57 Labs: Abnormal Lab Results - Last 24 Hours (Table) 08/17/23 Range/Units 11:40 Plt Count 139 L (150-450) k/uL Neutrophils # 8.9 H (1.3-7.7) k/uL Lymphocytes # 0.4 L (1.0-4.8) k/uL Assessment and Plan Assessment: Postoperative day #1 status post right hip gamma nail for intertrochanteric hip fracture, doing well Plan: 1. Weight bear as tolerated on the operative extremity, up with assistance and a walker 2. DVT prophylaxis with aspirin 81 mg BID 3. 2 doses of post operative antibiotics 4. Leave surgical dressing in place 5. Internal medicine for best-operative medical management 6. Physical therapy for gait training and mobilization 7. Dispo: Discharge tomorrow if he passes PT and pain controlled.
[2023-08-18 11:00] LABS: ALT 30 U/L (10-49); AST 28 U/L (14-35); Albumin 3.9 g/dL (3.8-4.9); Albumin/Globulin Ratio 2.17 Ratio (1.60-3.17); Alkaline Phosphatase 59 U/L (41-126); BUN/Creat Ratio 12.89 Ratio (12.00-20.00); Basophils # (A) 0.03 X 10*3/uL (0.00-0.10); Basophils % (A) 0.3 %; Blood Urea Nitrogen 11.6 mg/dL (9.0-27.0); Calcium 8.6 mg/dL (8.7-10.3); Carbon Dioxide 22.4 mmol/L (21.6-31.8); Chloride 107 mmol/L (96-109); Eosinophils # (A) 0.02 X 10*3/uL (0.04-0.35); Eosinophils % (A) 0.2 %; Globulin 1.8 g/dL (1.6-3.3); Glucose 110 mg/dL (70-110); HCT 36.9 % (39.6-50.0); Lymphocytes # (A) 0.83 X 10*3/uL (0.90-5.00); Lymphocytes % (A) 8.4 %; MCH 32.7 pg (27.0-32.0); MCHC 35.2 g/dL (32.0-37.0); MCV 92.9 FL (80.0-97.0); Mean Platelet Volume 10.9 FL (9.5-12.2); Monocytes # (A) 0.82 X 10*3/uL (0.20-1.00); Monocytes % (A) 8.3 %; NRBC Per 100 WBC 0 X 10*3/uL (0.00-0.01); Neutrophils % (A) 82.5 %; Platelet Count 140 X 10*3/uL (140-440); RBC 3.97 X 10*6/uL (4.40-5.60); RDW 12.5 % (11.5-14.5); Sodium 141 mmol/L (135-145); Total Bilirubin 0.6 mg/dL (0.3-1.2); Total Protein 5.7 g/dL (6.2-8.2); WBC 9.93 X 10*3/uL (4.50-10.00)
--- NOTE | 2023-08-18 12:18 | P.PN ---
Subjective Progress Note Date: 08/18/23 Julio Arias is a 68-year-old male patient Who presented to the ER with concerns of increased right hip pain after sustaining a fall from a 5 foot ladder while cleaning his gutters. Patient reports he landed on his right hip no further injuries noted. According to records medical records patient does not have a significant medical history negative for smoking. Patient has a history of previous left ankle surgery.X-ray completed showing acute displaced fracture or intertrochanteric region right femur. Patient admitted to orthopedic services with plans for surgical intervention. Lab work revealing white blood cell 8.5, hemoglobin 16.0, creatinine 0.84 bun 16. Vital signs temp 96.9, heart rate 82, respiratory rate 18, blood pressure 115/66 with pulse ox of 95% on room air. On 08/18/2023 patient was seen and examined on the medical floor he is alert and oriented x 3 in no apparent distress, there is no fever or chills no headache or dizziness no chest pain, no shortness of breath no cough no nausea or vomiting no abdominal pain no diarrhea and no urinary symptoms. Objective - Vital Signs Vital signs: Vital Signs Temp 98.3 F 08/18/23 07:11 Pulse 76 08/18/23 07:11 Resp 16 08/18/23 08:43 BP 118/71 08/18/23 07:11 Pulse Ox 97 08/18/23 07:11 FiO2 Intake & Output 08/17/23 08/18/23 08/18/23 18:59 06:59 18:59 Intake Total 800 Output Total 500 1300 Balance 300 -1300 Intake: IV 800 Output: Urine 400 1300 Estimated Blood Loss 100 Other: Voiding Method Toilet Urinal # Voids 1 - Exam Head normocephalic Neck supple Lungs clear to auscultation bilaterally no wheezing or crackles Heart regular rate and rhythm S1-S2, no rub or gallop Abdomen is soft nontender nondistended positive bowel sounds no hepatosplenomegaly Extremities no edema Neuro alert and orientated to 3 - Labs CBC & Chem 7: 08/18/23 05:24 08/18/23 05:24 Labs: Abnormal Lab Results - Last 24 Hours (Table) 08/17/23 08/18/23 08/18/23 Range/Units 11:40 05:24 05:24 RBC 3.97 L (4.40-5.60) X 10*6/uL Hct 36.9 L (39.6-50.0) % MCH 32.7 H (27.0-32.0) pg Plt Count 139 L (150-450) k/uL Neutrophils # 8.9 H 8.20 H (1.3-7.7) k/uL Lymphocytes # 0.4 L 0.83 L (1.0-4.8) k/uL Eosinophils # 0.02 L (0.04-0.35) X 10*3/uL Calcium 8.6 L (8.7-10.3) mg/dL Total Protein 5.7 L (6.2-8.2) g/dL Assessment and Plan Assessment: 1.Right intertrochanteric hip fractures status post fall. Plans for surgical intervention at 08/17/2023 2. Previous history of left ankle surgery 3. History of kidney stones Thank you for this consultation we will continue to follow patient closely throughout stay Repeat labs ordered for a.m.
[2023-08-19] MEDS: hydrOXYzine pamoate 25 MG CAP PO PRN (05:03)
[2023-08-19 08:27] VITALS: BP 106/66; PULSE 84; RESP 18; TEMP 98.8
[2023-08-19 08:32] LABS: Basophils # (A) 0.05 X 10*3/uL (0.00-0.10); Basophils % (A) 0.6 %; Eosinophils % (A) 1.2 %; HCT 38.7 % (39.6-50.0); HGB 13.1 g/dL (13.0-17.0); Lymphocytes # (A) 1.24 X 10*3/uL (0.90-5.00); Lymphocytes % (A) 14.3 %; MCH 31.1 pg (27.0-32.0); MCHC 33.9 g/dL (32.0-37.0); MCV 91.9 FL (80.0-97.0); Mean Platelet Volume 10.6 FL (9.5-12.2); Monocytes # (A) 0.79 X 10*3/uL (0.20-1.00); Monocytes % (A) 9.1 %; NRBC Per 100 WBC 0 X 10*3/uL (0.00-0.01); Neutrophils # (A) 6.45 X 10*3/uL (1.80-7.70); Neutrophils % (A) 74.6 %; Platelet Count 163 X 10*3/uL (140-440); RBC 4.21 X 10*6/uL (4.40-5.60); RDW 12.7 % (11.5-14.5); WBC 8.65 X 10*3/uL (4.50-10.00)
[2023-08-19 08:38] LABS: ALT 28 U/L (10-49); AST 32 U/L (14-35); Albumin 4.1 g/dL (3.8-4.9); Albumin/Globulin Ratio 1.95 Ratio (1.60-3.17); Alkaline Phosphatase 62 U/L (41-126); BUN/Creat Ratio 13.67 Ratio (12.00-20.00); Blood Urea Nitrogen 12.3 mg/dL (9.0-27.0); Calcium 8.8 mg/dL (8.7-10.3); Chloride 105 mmol/L (96-109); Globulin 2.1 g/dL (1.6-3.3); Glucose 109 mg/dL (70-110); Sodium 140 mmol/L (135-145); Total Bilirubin 0.8 mg/dL (0.3-1.2); Total Protein 6.2 g/dL (6.2-8.2)
--- NOTE | 2023-08-19 08:41 | P.DS ---
Providers Date of admission: 08/16/23 14:07 Attending physician: Scott Dockery Consults: 08/16/23 14:06 Consult Physician Urgent Consulting Provider: Kate Chatterjee Consult Reason/Comments: Medical clearance for surgery tomorrow Do you want consulting provider notified?: Yes Primary care physician: Kate [facility] Course: The patient is a 68 year old male who was admitted under my care for a hip fracture. He underwent surgery on Saturday. Following surgery he was transferred to the ortho floor. He had 2 doses of post op antibiotics. He was given ASA for DVT prophylaxis. He was seen by IM. He worked with PT on POD#2. He was cleared for d/c home. Plan - Discharge Summary Discharge Rx Participant: No New Discharge Prescriptions: New HYDROcodone/APAP 5-325MG [[place] 5-325] 1 - 2 tab PO Q6HR PRN #32 tab PRN Reason: Pain Docusate [Colace] 100 mg PO BID #60 capsule Aspirin 81 mg PO BID #60 tab No Action Naproxen Sodium [Aleve] 440 mg PO DAILY PRN PRN Reason: Pain Discharge Medication List Naproxen Sodium [Aleve] 440 mg PO DAILY PRN 08/16/23 [History] Aspirin 81 mg PO BID #60 tab 08/17/23 [Rx] Docusate [Colace] 100 mg PO BID #60 capsule 08/17/23 [Rx] HYDROcodone/APAP 5-325MG [[place] 5-325] 1 - 2 tab PO Q6HR PRN #32 tab 08/17/23 [Rx] Follow up Appointment(s)/Referral(s): Kate Chatterjee MD [Primary Care Provider] - 1-2 days Scott Dockery MD [Medical Doctor] - 2 Weeks Activity/Diet/Wound Care/Special Instructions: 1. Weight-bear as tolerated on your operative extremity unless instructed otherwise. Use a walker or other assistive device to ambulate. 2. Leave surgical dressing in place. If your dressing becomes saturated with blood, there is drainage, or the dressing becomes loose please contact the office. 3. It is okay to shower with your surgical dressing, but do not submerge in water (no hot tubs, bath's, swimming etc.) 4. Make sure to take her blood clot prevention medication as prescribed (aspirin, Eliquis, Xarelto, and Plavix are commonly prescribed medications for blood clot prevention) 5. While taking [place] or Percocet for pain make sure you're taking a stool softener (Colace) and drink lots of water. 6. Keep all follow-up appointments as scheduled. You will usually be seen in 1-2 weeks following surgery. 7. Please contact the office with any questions or concerns [phone] Discharge Disposition: HOME WITH HOME HEALTH SERVICES
--- NOTE | 2023-08-19 11:04 | P.PN ---
Subjective Progress Note Date: 08/19/23 Julio Arias is a 68-year-old male patient Who presented to the ER with concerns of increased right hip pain after sustaining a fall from a 5 foot ladder while cleaning his gutters. Patient reports he landed on his right hip no further injuries noted. According to records medical records patient does not have a significant medical history negative for smoking. Patient has a history of previous left ankle surgery.X-ray completed showing acute displaced fracture or intertrochanteric region right femur. Patient admitted to orthopedic services with plans for surgical intervention. Lab work revealing white blood cell 8.5, hemoglobin 16.0, creatinine 0.84 bun 16. Vital signs temp 96.9, heart rate 82, respiratory rate 18, blood pressure 115/66 with pulse ox of 95% on room air. On 08/18/2023 patient was seen and examined on the medical floor he is alert and oriented x 3 in no apparent distress, there is no fever or chills no headache or dizziness no chest pain, no shortness of breath no cough no nausea or vomiting no abdominal pain no diarrhea and no urinary symptoms. On 08/19/2023 patient was seen and examined on the medical floor he is alert and oriented x 3 in no apparent distress there is no fever or chills no headache or dizziness no chest pain no shortness of breath no cough no nausea or vomiting no abdominal pain no diarrhea and no urinary symptoms. Patient is medically stable for discharge to home today. Objective - Vital Signs Vital signs: Vital Signs Temp 98.8 F 08/19/23 07:42 Pulse 84 08/19/23 07:42 Resp 18 08/19/23 07:42 BP 106/66 08/19/23 07:42 Pulse Ox 97 08/19/23 07:42 FiO2 Intake & Output 08/18/23 08/19/23 08/19/23 18:59 06:59 18:59 Output Total 1100 Balance -1100 Output: Urine 1100 Other: Voiding Method Toilet Toilet Urinal Urinal # Voids 3 3 1 - Exam Head normocephalic Neck supple Lungs clear to auscultation bilaterally no wheezing or crackles Heart regular rate and rhythm S1-S2, no rub or gallop Abdomen is soft nontender nondistended positive bowel sounds no hepatosplenomegaly Extremities no edema Neuro alert and orientated to 3 - Labs CBC & Chem 7: 08/19/23 04:59 08/19/23 04:59 Labs: Abnormal Lab Results - Last 24 Hours (Table) 08/18/23 08/18/23 08/19/23 Range/Units 05:24 05:24 04:59 RBC 3.97 L 4.21 L (4.40-5.60) X 10*6/uL Hct 36.9 L 38.7 L (39.6-50.0) % MCH 32.7 H (27.0-32.0) pg Neutrophils # 8.20 H (1.80-7.70) X 10*3/uL Lymphocytes # 0.83 L (0.90-5.00) X 10*3/uL Eosinophils # 0.02 L (0.04-0.35) X 10*3/uL Calcium 8.6 L (8.7-10.3) mg/dL Total Protein 5.7 L (6.2-8.2) g/dL Assessment and Plan Assessment: 1.Right intertrochanteric hip fractures status post fall. Plans for surgical intervention at 08/17/2023 2. Previous history of left ankle surgery 3. History of kidney stones Thank you for this consultation we will continue to follow patient closely throughout stay Repeat labs ordered for a.m.
== END 2023-08-19 12:43 | disposition home health service (06) | DRG 482 ==
LOC: EC 12:23 → 4SSUR 14:07
PROVIDERS: ADMIT Orthopaedic Surgery; ATTEND Orthopaedic Surgery
PROC: 0QS606Z Reposition Right Upper Femur with Intramedullary Internal Fixation Device, Open Approach (ICD-10-PCS; principal; 2023-08-16)
PROC: 3E0T3BZ Introduction of Anesthetic Agent into Peripheral Nerves and Plexi, Percutaneous Approach (ICD-10-PCS; 2023-08-16)
DX: S72.141A Displaced intertrochanteric fracture of right femur, initial encounter for closed fracture (principal); W11.XXXA Fall on and from ladder, initial encounter; Z79.82 Long term (current) use of aspirin; Z87.442 Personal history of urinary calculi; Z91.013 Allergy to seafood
CPT/HCPCS: 71045; 73502; 80053; 85025; 85610; 96361; 96372; 96374; 99285